=== PATIENT | male | born 1945 | race Caucasian/White ===

== ENCOUNTER 2018-08-04 18:58 | Inpatient (IN) ==
--- NOTE | 2018-08-04 19:08 | ED ---
HPI General Chief Complaint: Arrhythmia / Palpitations Stated Complaint: Cardiac complaint Time Seen by Provider: 08/04/18 19:05 Source: patient Mode of arrival: EMS Limitations: no limitations History of Present Illness HPI narrative: Patient originally complained of chest pain lightheaded EMS arrived found the patient to be an wide-complex tachycardia and hypotensive patient was defibrillated and patient change to a sinus tachycardia with frequent PVCs, patient was provided lidocaine IV MD complaint: Reports chest pain STEMI Alert: No Onset (ago): hour(s) (1) Onset: during rest Pain location: Reports substernal Severity: severe Quality: Reports tightness Pain radiation: Reports none Relieving factors: nothing Exacerbating factors: nothing Treatments prior to arrival chest pain: Reports defibrillation and other Related Data Home Medications Medication Instructions Recorded Confirmed allopurinol 100 mg PO BID 08/04/18 08/04/18 aspirin [Aspir-81] 81 mg PO DAILY 08/04/18 08/04/18 cholecalciferol (vitamin D3) 1,000 unit PO DAILY 08/04/18 08/04/18 [Vitamin D3] clopidogrel [Plavix] 75 mg PO DAILY 08/04/18 08/04/18 insulin lispro [Humalog U-100 15 unit SUBCUT BID 08/04/18 08/04/18 Insulin] losartan 25 mg PO DAILY 08/04/18 08/04/18 metformin 1,000 mg PO BID 08/04/18 08/04/18 omeprazole 20 mg PO DAILY 08/04/18 08/04/18 sitagliptin [Januvia] 100 mg PO DAILY 08/04/18 08/04/18 Previous Rx's Medication Instructions Recorded atorvastatin 40 mg PO HS tab 08/07/18 carvedilol 6.25 mg PO BID 90 Days #180 tab 08/07/18 Allergies Allergy/AdvReac Type Severity Reaction Status Date / Time No Known Allergies Allergy Uncoded 10/03/13 18:50 Review of Systems ROS: all other systems reviewed are negative PMFSH History History Provided By: Project Controller / EMT Medical History Medical History Diabetes (Acute) GERD (gastroesophageal reflux disease) (Acute) Gout (Acute) Hyperlipidemia (Acute) Hypertension (Acute) Myocardial infarction (Acute) Surgical History Surgical History H/O rotator cuff surgery (Acute) Hx of tonsillectomy (Acute) Stented coronary artery (Acute) Family History Family History Other Coronary artery disease Social History Social History Substance History: No History of Abuse Second Hand Smoke Exposure: No Smoking Status: Former smoker How Often Do You Have a Drink Containing Alcohol: Never Exam Narrative Exam Narrative: GENERAL: Well-nourished, well-developed patient in no apparent distress. SKIN: Warm and dry. HEAD: Atraumatic. Normocephalic. EYES: Pupils equal and round. No scleral icterus. No injection or drainage. ENT: No nasal bleeding or discharge. Mucous membranes pink and moist. NECK: Trachea midline. No JVD. CARDIOVASCULAR: Regular rate and rhythm. no rubs or gallops RESPIRATORY: No accessory muscle use. Clear to auscultation. Breath sounds equal bilaterally. GASTROINTESTINAL: Abdomen soft, non-tender, nondistended. No rebound or guarding MUSCULOSKELETAL: Extremities without clubbing, cyanosis, or edema. No obvious deformities. NEUROLOGICAL: Awake and alert. No obvious cranial nerve deficits. Motor grossly within normal limits. Five out of 5 muscle strength in the arms and legs. Normal speech. PSYCHIATRIC: Appropriate mood and affect; insight and judgment normal. Course Initial Documented Vital Signs Temperature 98.9 F 08/04/18 19:00 Pulse Rate 113 H 08/04/18 19:00 Respiratory Rate 18 08/04/18 19:00 Blood Pressure 145/101 H 08/04/18 19:00 Pulse Oximetry 96 08/04/18 19:00 Last Documented Vital Signs Temperature 98.5 F 08/07/18 08:13 Pulse Rate 110 H 08/07/18 09:00 Respiratory Rate 17 08/07/18 08:13 Blood Pressure 160/86 H 08/07/18 08:13 Pulse Oximetry 96 08/07/18 08:41 Medical Decision Making MDM Narrative Medical Screen Exam Complete: Yes Emergency Medical Condition: Yes Differential Diagnosis Differential Diagnosis: Non-STEMI versus STEMI versus tachyarrhythmia versus prolonged QT versus electrolyte abnormalities Lab Data Result diagrams: 08/07/18 05:44 08/05/18 05:07 Lab Results 08/04/18 08/04/1818 Range/Units 19:15 19:15 19:15 WBC 9.8 (4.0-11.0) th/mm3 RBC 4.88 (4.50-5.90) mil/mm3 Hgb 14.2 (13.0-17.0) gm/dL Hct 43.4 (39.0-51.0) % MCV 89.0 (80.0-100.0) fL MCH 29.2 (27.0-34.0) pg MCHC 32.8 (32.0-36.0) % RDW 14.2 (11.6-17.2) % Plt Count 233 (150-450) th/mm3 MPV 8.4 (7.0-11.0) fL Neut % (Auto) 48.8 (16.0-70.0) % Lymph % (Auto) 40.3 (9.0-44.0) % Coleman % (Auto) 7.1 (0.0-8.0) % Eos % (Auto) 3.2 (0.0-4.0) % Baso % (Auto) 0.6 (0.0-2.0) % Neut # (Auto) 4.8 (1.8-7.7) th/mm3 Lymph # (Auto) 4.0 (1.0-4.8) th/mm3 Coleman # (Auto) 0.7 (0.0-0.9) th/mm3 Eos # (Auto) 0.3 (0.0-0.4) th/mm3 Baso # (Auto) 0.1 (0.0-0.2) th/mm3 WBC Differential . Differential Comment Auto diff final PT 10.1 (9.8-11.6) sec INR 1.0 Ratio APTT 22.6 L (24.3-30.1) sec Sodium 138 (136-145) meq/L Potassium 3.9 (3.5-5.1) meq/L Chloride 105 (98-107) meq/L Carbon Dioxide 20.3 L (21.0-32.0) meq/L Anion Gap 13 (5-15) meq/L BUN 14 (7-18) mg/dL Creatinine 1.19 (0.60-1.30) mg/dL Estimated GFR 60 L (>89) mL/min POC Glucose (68-110) mg/dl Random Glucose 291 H (74-106) mg/dL Calcium 8.4 L (8.5-10.1) mg/dL Total Bilirubin 0.3 (0.2-1.0) mg/dL AST 53 H (15-37) U/L ALT 59 (12-78) U/L Alkaline Phosphatase 73 (45-117) U/L Total Creatine Kinase 88 (39-308) U/L Troponin I 0.02 (0.02-0.05) ng/mL B-Natriuretic Peptide (0-100) pg/mL Total Protein 7.1 (6.4-8.2) g/dL Albumin 3.2 L (3.4-5.0) g/dL Triglycerides (42-150) mg/dL Cholesterol (120-200) mg/dL LDL Cholesterol, Calc (0-99) mg/dL HDL Cholesterol (40.0-60.0) mg/dL Cholesterol/HDL Ratio Ratio Lipase 87 (73-393) U/L Nasal Screen MRSA (PCR) (Negative) 08/04/18 08/04/18 08/04/18 Range/Units 19:15 21:30 22:01 WBC (4.0-11.0) th/mm3 RBC (4.50-5.90) mil/mm3 Hgb (13.0-17.0) gm/dL Hct (39.0-51.0) % MCV (80.0-100.0) fL MCH (27.0-34.0) pg MCHC (32.0-36.0) % RDW (11.6-17.2) % Plt Count (150-450) th/mm3 MPV (7.0-11.0) fL Neut % (Auto) (16.0-70.0) % Lymph % (Auto) (9.0-44.0) % Coleman % (Auto) (0.0-8.0) % Eos % (Auto) (0.0-4.0) % Baso % (Auto) (0.0-2.0) % Neut # (Auto) (1.8-7.7) th/mm3 Lymph # (Auto) (1.0-4.8) th/mm3 Coleman # (Auto) (0.0-0.9) th/mm3 Eos # (Auto) (0.0-0.4) th/mm3 Baso # (Auto) (0.0-0.2) th/mm3 WBC Differential Differential Comment PT (9.8-11.6) sec INR Ratio APTT (24.3-30.1) sec Sodium (136-145) meq/L Potassium (3.5-5.1) meq/L Chloride (98-107) meq/L Carbon Dioxide (21.0-32.0) meq/L Anion Gap (5-15) meq/L BUN (7-18) mg/dL Creatinine (0.60-1.30) mg/dL Estimated GFR (>89) mL/min POC Glucose 317 H (68-110) mg/dl Random Glucose (74-106) mg/dL Calcium (8.5-10.1) mg/dL Total Bilirubin (0.2-1.0) mg/dL AST (15-37) U/L ALT (12-78) U/L Alkaline Phosphatase (45-117) U/L Total Creatine Kinase (39-308) U/L Troponin I (0.02-0.05) ng/mL B-Natriuretic Peptide 130 H (0-100) pg/mL Total Protein (6.4-8.2) g/dL Albumin (3.4-5.0) g/dL Triglycerides (42-150) mg/dL Cholesterol (120-200) mg/dL LDL Cholesterol, Calc (0-99) mg/dL HDL Cholesterol (40.0-60.0) mg/dL Cholesterol/HDL Ratio Ratio Lipase (73-393) U/L Nasal Screen MRSA (PCR) Not detected (Negative) 08/05/18 08/05/18 08/05/18 Range/Units 00:02 02:16 03:24 WBC (4.0-11.0) th/mm3 RBC (4.50-5.90) mil/mm3 Hgb (13.0-17.0) gm/dL Hct (39.0-51.0) % MCV (80.0-100.0) fL MCH (27.0-34.0) pg MCHC (32.0-36.0) % RDW (11.6-17.2) % Plt Count (150-450) th/mm3 MPV (7.0-11.0) fL Neut % (Auto) (16.0-70.0) % Lymph % (Auto) (9.0-44.0) % Coleman % (Auto) (0.0-8.0) % Eos % (Auto) (0.0-4.0) % Baso % (Auto) (0.0-2.0) % Neut # (Auto) (1.8-7.7) th/mm3 Lymph # (Auto) (1.0-4.8) th/mm3 Coleman # (Auto) (0.0-0.9) th/mm3 Eos # (Auto) (0.0-0.4) th/mm3 Baso # (Auto) (0.0-0.2) th/mm3 WBC Differential Differential Comment PT 10.6 (9.8-11.6) sec INR 1.0 Ratio APTT 24.0 L (24.3-30.1) sec Sodium (136-145) meq/L Potassium (3.5-5.1) meq/L Chloride (98-107) meq/L Carbon Dioxide (21.0-32.0) meq/L Anion Gap (5-15) meq/L BUN (7-18) mg/dL Creatinine (0.60-1.30) mg/dL Estimated GFR (>89) mL/min POC Glucose 192 H (68-110) mg/dl Random Glucose (74-106) mg/dL Calcium (8.5-10.1) mg/dL Total Bilirubin (0.2-1.0) mg/dL AST (15-37) U/L ALT (12-78) U/L Alkaline Phosphatase (45-117) U/L Total Creatine Kinase 117 (39-308) U/L Troponin I 0.67 H* (0.02-0.05) ng/mL B-Natriuretic Peptide (0-100) pg/mL Total Protein (6.4-8.2) g/dL Albumin (3.4-5.0) g/dL Triglycerides (42-150) mg/dL Cholesterol (120-200) mg/dL LDL Cholesterol, Calc (0-99) mg/dL HDL Cholesterol (40.0-60.0) mg/dL Cholesterol/HDL Ratio Ratio Lipase (73-393) U/L Nasal Screen MRSA (PCR) (Negative) 08/05/18 08/05/18 08/05/18 Range/Units 05:07 05:07 07:54 WBC 8.7 (4.0-11.0) th/mm3 RBC 4.70 (4.50-5.90) mil/mm3 Hgb 13.7 (13.0-17.0) gm/dL Hct 41.6 (39.0-51.0) % MCV 88.5 (80.0-100.0) fL MCH 29.2 (27.0-34.0) pg MCHC 33.0 (32.0-36.0) % RDW 14.0 (11.6-17.2) % Plt Count 221 (150-450) th/mm3 MPV 8.7 (7.0-11.0) fL Neut % (Auto) 62.9 (16.0-70.0) % Lymph % (Auto) 28.0 (9.0-44.0) % Coleman % (Auto) 7.1 (0.0-8.0) % Eos % (Auto) 1.5 (0.0-4.0) % Baso % (Auto) 0.5 (0.0-2.0) % Neut # (Auto) 5.5 (1.8-7.7) th/mm3 Lymph # (Auto) 2.4 (1.0-4.8) th/mm3 Coleman # (Auto) 0.6 (0.0-0.9) th/mm3 Eos # (Auto) 0.1 (0.0-0.4) th/mm3 Baso # (Auto) 0.0 (0.0-0.2) th/mm3 WBC Differential . Differential Comment Auto diff final PT (9.8-11.6) sec INR Ratio APTT 31.5 H D (24.3-30.1) sec Sodium 140 (136-145) meq/L Potassium 4.0 (3.5-5.1) meq/L Chloride 105 (98-107) meq/L Carbon Dioxide 24.4 (21.0-32.0) meq/L Anion Gap 11 (5-15) meq/L BUN 15 (7-18) mg/dL Creatinine 0.95 (0.60-1.30) mg/dL Estimated GFR 78 L (>89) mL/min POC Glucose (68-110) mg/dl Random Glucose 191 H D (74-106) mg/dL Calcium 8.8 (8.5-10.1) mg/dL Total Bilirubin (0.2-1.0) mg/dL AST (15-37) U/L ALT (12-78) U/L Alkaline Phosphatase (45-117) U/L Total Creatine Kinase 130 (39-308) U/L Troponin I 0.80 H* (0.02-0.05) ng/mL B-Natriuretic Peptide (0-100) pg/mL Total Protein (6.4-8.2) g/dL Albumin (3.4-5.0) g/dL Triglycerides (42-150) mg/dL Cholesterol (120-200) mg/dL LDL Cholesterol, Calc (0-99) mg/dL HDL Cholesterol (40.0-60.0) mg/dL Cholesterol/HDL Ratio Ratio Lipase (73-393) U/L Nasal Screen MRSA (PCR) (Negative) 08/05/18 08/05/18 08/05/18 Range/Units 09:07 12:11 16:10 WBC (4.0-11.0) th/mm3 RBC (4.50-5.90) mil/mm3 Hgb (13.0-17.0) gm/dL Hct (39.0-51.0) % MCV (80.0-100.0) fL MCH (27.0-34.0) pg MCHC (32.0-36.0) % RDW (11.6-17.2) % Plt Count (150-450) th/mm3 MPV (7.0-11.0) fL Neut % (Auto) (16.0-70.0) % Lymph % (Auto) (9.0-44.0) % Coleman % (Auto) (0.0-8.0) % Eos % (Auto) (0.0-4.0) % Baso % (Auto) (0.0-2.0) % Neut # (Auto) (1.8-7.7) th/mm3 Lymph # (Auto) (1.0-4.8) th/mm3 Coleman # (Auto) (0.0-0.9) th/mm3 Eos # (Auto) (0.0-0.4) th/mm3 Baso # (Auto) (0.0-0.2) th/mm3 WBC Differential Differential Comment PT (9.8-11.6) sec INR Ratio APTT 25.4 (24.3-30.1) sec Sodium (136-145) meq/L Potassium (3.5-5.1) meq/L Chloride (98-107) meq/L Carbon Dioxide (21.0-32.0) meq/L Anion Gap (5-15) meq/L BUN (7-18) mg/dL Creatinine (0.60-1.30) mg/dL Estimated GFR (>89) mL/min POC Glucose 225 H 243 H (68-110) mg/dl Random Glucose (74-106) mg/dL Calcium (8.5-10.1) mg/dL Total Bilirubin (0.2-1.0) mg/dL AST (15-37) U/L ALT (12-78) U/L Alkaline Phosphatase (45-117) U/L Total Creatine Kinase (39-308) U/L Troponin I (0.02-0.05) ng/mL B-Natriuretic Peptide (0-100) pg/mL Total Protein (6.4-8.2) g/dL Albumin (3.4-5.0) g/dL Triglycerides (42-150) mg/dL Cholesterol (120-200) mg/dL LDL Cholesterol, Calc (0-99) mg/dL HDL Cholesterol (40.0-60.0) mg/dL Cholesterol/HDL Ratio Ratio Lipase (73-393) U/L Nasal Screen MRSA (PCR) (Negative) 08/05/18 08/05/18 08/06/18 Range/Units 16:44 21:42 05:16 WBC (4.0-11.0) th/mm3 RBC (4.50-5.90) mil/mm3 Hgb (13.0-17.0) gm/dL Hct (39.0-51.0) % MCV (80.0-100.0) fL MCH (27.0-34.0) pg MCHC (32.0-36.0) % RDW (11.6-17.2) % Plt Count (150-450) th/mm3 MPV (7.0-11.0) fL Neut % (Auto) (16.0-70.0) % Lymph % (Auto) (9.0-44.0) % Coleman % (Auto) (0.0-8.0) % Eos % (Auto) (0.0-4.0) % Baso % (Auto) (0.0-2.0) % Neut # (Auto) (1.8-7.7) th/mm3 Lymph # (Auto) (1.0-4.8) th/mm3 Coleman # (Auto) (0.0-0.9) th/mm3 Eos # (Auto) (0.0-0.4) th/mm3 Baso # (Auto) (0.0-0.2) th/mm3 WBC Differential Differential Comment PT (9.8-11.6) sec INR Ratio APTT (24.3-30.1) sec Sodium (136-145) meq/L Potassium (3.5-5.1) meq/L Chloride (98-107) meq/L Carbon Dioxide (21.0-32.0) meq/L Anion Gap (5-15) meq/L BUN (7-18) mg/dL Creatinine (0.60-1.30) mg/dL Estimated GFR (>89) mL/min POC Glucose 209 H 255 H (68-110) mg/dl Random Glucose (74-106) mg/dL Calcium (8.5-10.1) mg/dL Total Bilirubin (0.2-1.0) mg/dL AST (15-37) U/L ALT (12-78) U/L Alkaline Phosphatase (45-117) U/L Total Creatine Kinase (39-308) U/L Troponin I (0.02-0.05) ng/mL B-Natriuretic Peptide (0-100) pg/mL Total Protein (6.4-8.2) g/dL Albumin (3.4-5.0) g/dL Triglycerides 141 (42-150) mg/dL Cholesterol 88 L (120-200) mg/dL LDL Cholesterol, Calc 31 (0-99) mg/dL HDL Cholesterol 28.7 L (40.0-60.0) mg/dL Cholesterol/HDL Ratio 3.06 Ratio Lipase (73-393) U/L Nasal Screen MRSA (PCR) (Negative) 08/06/18 08/06/18 08/06/18 Range/Units 05:16 06:03 07:46 WBC 8.7 (4.0-11.0) th/mm3 RBC 4.48 L (4.50-5.90) mil/mm3 Hgb 13.3 (13.0-17.0) gm/dL Hct 39.7 (39.0-51.0) % MCV 88.5 (80.0-100.0) fL MCH 29.7 (27.0-34.0) pg MCHC 33.5 (32.0-36.0) % RDW 14.5 (11.6-17.2) % Plt Count 193 (150-450) th/mm3 MPV 8.4 (7.0-11.0) fL Neut % (Auto) (16.0-70.0) % Lymph % (Auto) (9.0-44.0) % Coleman % (Auto) (0.0-8.0) % Eos % (Auto) (0.0-4.0) % Baso % (Auto) (0.0-2.0) % Neut # (Auto) (1.8-7.7) th/mm3 Lymph # (Auto) (1.0-4.8) th/mm3 Coleman # (Auto) (0.0-0.9) th/mm3 Eos # (Auto) (0.0-0.4) th/mm3 Baso # (Auto) (0.0-0.2) th/mm3 WBC Differential Differential Comment PT (9.8-11.6) sec INR Ratio APTT (24.3-30.1) sec Sodium (136-145) meq/L Potassium (3.5-5.1) meq/L Chloride (98-107) meq/L Carbon Dioxide (21.0-32.0) meq/L Anion Gap (5-15) meq/L BUN (7-18) mg/dL Creatinine (0.60-1.30) mg/dL Estimated GFR (>89) mL/min POC Glucose 203 H 204 H (68-110) mg/dl Random Glucose (74-106) mg/dL Calcium (8.5-10.1) mg/dL Total Bilirubin (0.2-1.0) mg/dL AST (15-37) U/L ALT (12-78) U/L Alkaline Phosphatase (45-117) U/L Total Creatine Kinase (39-308) U/L Troponin I (0.02-0.05) ng/mL B-Natriuretic Peptide (0-100) pg/mL Total Protein (6.4-8.2) g/dL Albumin (3.4-5.0) g/dL Triglycerides (42-150) mg/dL Cholesterol (120-200) mg/dL LDL Cholesterol, Calc (0-99) mg/dL HDL Cholesterol (40.0-60.0) mg/dL Cholesterol/HDL Ratio Ratio Lipase (73-393) U/L Nasal Screen MRSA (PCR) (Negative) 08/06/18 08/06/18 08/06/18 Range/Units 11:20 16:42 20:29 WBC (4.0-11.0) th/mm3 RBC (4.50-5.90) mil/mm3 Hgb (13.0-17.0) gm/dL Hct (39.0-51.0) % MCV (80.0-100.0) fL MCH (27.0-34.0) pg MCHC (32.0-36.0) % RDW (11.6-17.2) % Plt Count (150-450) th/mm3 MPV (7.0-11.0) fL Neut % (Auto) (16.0-70.0) % Lymph % (Auto) (9.0-44.0) % Coleman % (Auto) (0.0-8.0) % Eos % (Auto) (0.0-4.0) % Baso % (Auto) (0.0-2.0) % Neut # (Auto) (1.8-7.7) th/mm3 Lymph # (Auto) (1.0-4.8) th/mm3 Coleman # (Auto) (0.0-0.9) th/mm3 Eos # (Auto) (0.0-0.4) th/mm3 Baso # (Auto) (0.0-0.2) th/mm3 WBC Differential Differential Comment PT (9.8-11.6) sec INR Ratio APTT (24.3-30.1) sec Sodium (136-145) meq/L Potassium (3.5-5.1) meq/L Chloride (98-107) meq/L Carbon Dioxide (21.0-32.0) meq/L Anion Gap (5-15) meq/L BUN (7-18) mg/dL Creatinine (0.60-1.30) mg/dL Estimated GFR (>89) mL/min POC Glucose 209 H 142 H 245 H (68-110) mg/dl Random Glucose (74-106) mg/dL Calcium (8.5-10.1) mg/dL Total Bilirubin (0.2-1.0) mg/dL AST (15-37) U/L ALT (12-78) U/L Alkaline Phosphatase (45-117) U/L Total Creatine Kinase (39-308) U/L Troponin I (0.02-0.05) ng/mL B-Natriuretic Peptide (0-100) pg/mL Total Protein (6.4-8.2) g/dL Albumin (3.4-5.0) g/dL Triglycerides (42-150) mg/dL Cholesterol (120-200) mg/dL LDL Cholesterol, Calc (0-99) mg/dL HDL Cholesterol (40.0-60.0) mg/dL Cholesterol/HDL Ratio Ratio Lipase (73-393) U/L Nasal Screen MRSA (PCR) (Negative) 08/07/18 08/07/18 08/07/18 Range/Units 01:27 05:44 07:03 WBC 9.5 (4.0-11.0) th/mm3 RBC 4.39 L (4.50-5.90) mil/mm3 Hgb 13.0 (13.0-17.0) gm/dL Hct 39.0 (39.0-51.0) % MCV 88.8 (80.0-100.0) fL MCH 29.6 (27.0-34.0) pg MCHC 33.3 (32.0-36.0) % RDW 14.6 (11.6-17.2) % Plt Count 193 (150-450) th/mm3 MPV 8.0 (7.0-11.0) fL Neut % (Auto) (16.0-70.0) % Lymph % (Auto) (9.0-44.0) % Coleman % (Auto) (0.0-8.0) % Eos % (Auto) (0.0-4.0) % Baso % (Auto) (0.0-2.0) % Neut # (Auto) (1.8-7.7) th/mm3 Lymph # (Auto) (1.0-4.8) th/mm3 Coleman # (Auto) (0.0-0.9) th/mm3 Eos # (Auto) (0.0-0.4) th/mm3 Baso # (Auto) (0.0-0.2) th/mm3 WBC Differential Differential Comment PT (9.8-11.6) sec INR Ratio APTT (24.3-30.1) sec Sodium (136-145) meq/L Potassium (3.5-5.1) meq/L Chloride (98-107) meq/L Carbon Dioxide (21.0-32.0) meq/L Anion Gap (5-15) meq/L BUN (7-18) mg/dL Creatinine (0.60-1.30) mg/dL Estimated GFR (>89) mL/min POC Glucose 211 H 188 H (68-110) mg/dl Random Glucose (74-106) mg/dL Calcium (8.5-10.1) mg/dL Total Bilirubin (0.2-1.0) mg/dL AST (15-37) U/L ALT (12-78) U/L Alkaline Phosphatase (45-117) U/L Total Creatine Kinase (39-308) U/L Troponin I (0.02-0.05) ng/mL B-Natriuretic Peptide (0-100) pg/mL Total Protein (6.4-8.2) g/dL Albumin (3.4-5.0) g/dL Triglycerides (42-150) mg/dL Cholesterol (120-200) mg/dL LDL Cholesterol, Calc (0-99) mg/dL HDL Cholesterol (40.0-60.0) mg/dL Cholesterol/HDL Ratio Ratio Lipase (73-393) U/L Nasal Screen MRSA (PCR) (Negative) Imaging Data Radiologist's impression: Chest X-Ray 08/04/18 19:05 CONCLUSION: Basilar density, probably atelectasis. Cardiomegaly. No pneumothorax or significant effusion. Chest X-Ray 08/06/18 00:00 CONCLUSION: Left-sided pacer in good position without pneumothorax. Cardiomegaly with pulmonary vascular engorgement. ECG Data EKG Prior to Arrival: No Attestation: I personally reviewed and interpreted this ECG as follows: Prior ECG tracings: not available for review Interpretation: nsr with frequent pvc's Discharge Plan Discharge Disposition Patient Disposition: 01 Discharge Home Discharge Condition Condition: Good Discharge Order Discharge Orders: Discharge Order (Routine); Ordered 08/07/18 Ordered By: Rodney Otero Cardiology Clear for Discharge (Routine); Ordered 08/07/18 Ordered By: January Shadeed Discharge Details Diagnosis: Wide-complex tachycardia, Chest pain Physicians Team ED Provider: Reece Baires Primary Care Provider: Guru Sumner Attending Provider: Rodney Otero Other Providers: Mario Millan Discharge Interventions Interventions: ED Discharge Assessment Last Done: 08/04/18 21:40 Status ED Status: Left Department Discharge Information Discharge Date/Time: 08/04/18 21:45
--- NOTE | 2018-08-04 19:31 | XR ---
EXAM DATE: 08/04/2018 7:05 PM EDT AGE/SEX: 72 years / Male INDICATIONS: Chest pain. CLINICAL DATA: This is the patient's initial encounter. Patient reports that signs and symptoms have been present for 1 day and indicates a pain score of 4/10. MEDICAL/SURGICAL HISTORY: Diabetes mellitus type II. None. COMPARISON: . FINDINGS: Heart size enlarged. Basilar density, probably atelectasis. No significant effusion. No pneumothorax. CONCLUSION: Basilar density, probably atelectasis. Cardiomegaly. No pneumothorax or significant effusion. Electronically signed by: Joe Rudd MD 08/04/2018 7:30 PM EDT
[2018-08-04 19:46] LABS: Baso # (Auto) 0.1 th/mm3 (0.0-0.2); Baso % (Auto) 0.6 % (0.0-2.0); Eos # (Auto) 0.3 th/mm3 (0.0-0.4); Eos % (Auto) 3.2 % (0.0-4.0); Hematocrit 43.4 % (39.0-51.0); Hemoglobin 14.2 gm/dL (13.0-17.0); Lymph % (Auto) 40.3 % (9.0-44.0); Mean Corpuscular HGB Conc 32.8 % (32.0-36.0); Mean Corpuscular Hemoglobin 29.2 pg (27.0-34.0); Mean Platelet Volume 8.4 fL (7.0-11.0); Mono # (Auto) 0.7 th/mm3 (0.0-0.9); Mono % (Auto) 7.1 % (0.0-8.0); Neut # (Auto) 4.8 th/mm3 (1.8-7.7); Neut % (Auto) 48.8 % (16.0-70.0); Platelet Count 233 th/mm3 (150-450); Red Blood Count 4.88 mil/mm3 (4.50-5.90); Red Cell Distribution Width 14.2 % (11.6-17.2); White Blood Count 9.8 th/mm3 (4.0-11.0)
[2018-08-04 19:59] LABS: Activated Partial Thrombo Time 22.6 sec (24.3-30.1); Prothrombin Time 10.1 sec (9.8-11.6)
[2018-08-04 20:17] LABS: Alanine Aminotransferase 59 U/L (12-78); Albumin 3.2 g/dL (3.4-5.0); Anion Gap 13 meq/L (5-15); Aspartate Aminotransferase 53 U/L (15-37); Blood Urea Nitrogen 14 mg/dL (7-18); Calcium 8.4 mg/dL (8.5-10.1); Carbon Dioxide 20.3 meq/L (21.0-32.0); Chloride 105 meq/L (98-107); Glomerular Filtration Rate 60 mL/min (>89); Glucose,Random 291 mg/dL (74-106); Lipase 87 U/L (73-393); Potassium 3.9 meq/L (3.5-5.1); Sodium 138 meq/L (136-145)
[2018-08-04 20:22] LABS: Alkaline Phosphatase 73 U/L (45-117); Total Protein 7.1 g/dL (6.4-8.2); Troponin I 0.02 ng/mL (0.02-0.05)
[2018-08-04 20:25] LABS: Creatine Kinase 88 U/L (39-308)
[2018-08-04] MEDS ORDERED: Dextrose 50% in Water 50 ML Vial IV.PUSH PRN (22:27)
--- NOTE | 2018-08-04 22:38 | P.HP ---
History of Present Illness Service: [facility] Primary Care Physician: Guru Sumner MD History of Present Illness: 72-year-old male with a past medical history significant for CAD status post NV in 2006, hypertension, hyperlipidemia and diabetes mellitus presents to the emergency department for the evaluation of chest pain. The patient reports he was watching TV when he had sudden onset chest pain. He reports he felt hot, dizzy and became diaphoretic. He denies any shortness of breath or loss of consciousness. He states his chest pain is now resolved. On arrival to the scene, EMS the patient to have a wide-complex tachycardia and be hypotensive. The patient was defibrillated to and converted to sinus tachycardia with frequent PVCs. He denies any associated shortness of breath. No fevers/ chills. No abdominal pain. No nausea/vomiting/diarrhea. No lateralizing signs /symptoms. Inpatient Certification: I certify that the inpatient services were ordered in accordance with Medicare regulations governing the order. This includes certification that hospital inpatient services are reasonable and necessary and in the case of services not specified as inpatient-only under 42 CFR 419.22(n), that they are appropriately provided as inpatient services in accordance to with the 2-midnight benchmark under 43 CFR 412.3(e) Review of Systems All other systems reviewed negative except as stated in HPI [facility] - History History Provided By: Patient - Medical History Medical History: Medical History (Last Updated 08/04/18 @ 22:31 by Beverly Camarillo MD) Diabetes GERD (gastroesophageal reflux disease) Gout Hyperlipidemia Hypertension Myocardial infarction - Surgical History Surgical History: Surgical History (Last Reviewed 08/04/18 @ 22:31 by Beverly Camarillo MD) H/O rotator cuff surgery Hx of tonsillectomy Stented coronary artery - Family History Family History: Family History (Last Updated 08/04/18 @ 22:31 by Beverly Camarillo MD) Other Coronary artery disease - Tobacco History Second Hand Smoke Exposure: No Tobacco Use In Past 30 Days: No Smoking Status: Former smoker - Alcohol History How Often Do You Have a Drink Containing Alcohol: Never - Substance Use History Substance History: No History of Abuse - Immunization History Tetanus Immunization: Unsure Medications and Allergies Active Medications: Active Medications Chlorhexidine Gluconate (Chlorhexidine 2% Cloth) 3 pack TOPICAL DAILY@0400 [facility] Stop: 08/10/18 03:59 Chlorhexidine Gluconate (Chlorhexidine 2% Cloth) 3 pack TOPICAL DAILY@0400 PRN PRN Reason: Extra cloth needed Stop: 08/10/18 03:59 Sodium Chloride (Ns Flush) 2 ml IV.FLUSH UNSCH PRN PRN Reason: FLUSH AFTER USING IV ACCESS Allergies Allergy/AdvReac Type Severity Reaction Status Date / Time No Known Allergies Allergy Uncoded 10/03/13 18:50 Home Medications Medication Instructions Recorded Confirmed Type allopurinol 100 mg PO BID 08/04/18 08/04/18 History aspirin [Aspir-81] 81 mg PO DAILY 08/04/18 08/04/18 History carvedilol 6.25 mg PO BID 08/04/18 08/04/18 History cholecalciferol (vitamin D3) 1,000 unit PO DAILY 08/04/18 08/04/18 History [Vitamin D3] clopidogrel [Plavix] 75 mg PO DAILY 08/04/18 08/04/18 History insulin lispro [Humalog U-100 15 unit SUBCUT BID 08/04/18 08/04/18 History Insulin] losartan 25 mg PO DAILY 08/04/18 08/04/18 History metformin 1,000 mg PO BID 08/04/18 08/04/18 History omeprazole 20 mg PO DAILY 08/04/18 08/04/18 History sitagliptin [Januvia] 100 mg PO DAILY 08/04/18 08/04/18 History Exam Vital signs: Vital Signs 08/04/18 19:00 08/04/18 19:32 08/04/18 20:00 Temperature 98.9 F Pulse Rate 113 H Respiratory Rate 18 Blood Pressure 145/101 H Pulse Oximetry 96 96 95 Intake & Output 08/04/18 08/04/18 08/05/18 06:59 18:59 06:59 Weight 128 kg Other: Weight On Admission 128 kg Narrative: Gen.: No acute distress Head: Normocephalic. Atraumatic. EENT: Pupils equal round and reactive to light. Nose without drainage. Airway intact. Throat without injection. Cardiovascular: Regular rate and rhythm. No murmurs, rubs or gallops. Respiratory: Lungs clear to auscultation bilaterally. No wheezes or rhonchi. Abdomen: Soft, nontender, nondistended. No peritoneal signs. Musculoskeletal: No gross deformities. No edema. Skin: No obvious rashes or erythema. Neuro: Sensory and motor grossly intact. Cranial nerves II through XII grossly intact. Results - Labs CBC & Chem 7: 08/04/18 19:15 08/04/18 19:15 Labs: Laboratory Results - last 24 hr 08/04/18 08/04/18 08/04/18 19:15 19:15 19:15 WBC 9.8 RBC 4.88 Hgb 14.2 Hct 43.4 MCV 89.0 MCH 29.2 MCHC 32.8 RDW 14.2 Plt Count 233 MPV 8.4 Neut % (Auto) 48.8 Lymph % (Auto) 40.3 Morris % (Auto) 7.1 Eos % (Auto) 3.2 Baso % (Auto) 0.6 Neut # (Auto) 4.8 Lymph # (Auto) 4.0 Morris # (Auto) 0.7 Eos # (Auto) 0.3 Baso # (Auto) 0.1 WBC Differential . Differential Comment Auto diff final PT 10.1 INR 1.0 APTT 22.6 L Sodium 138 Potassium 3.9 Chloride 105 Carbon Dioxide 20.3 L Anion Gap 13 BUN 14 Creatinine 1.19 Estimated GFR 60 L POC Glucose Random Glucose 291 H Calcium 8.4 L Total Bilirubin 0.3 AST 53 H ALT 59 Alkaline Phosphatase 73 Total Creatine Kinase 88 Troponin I 0.02 B-Natriuretic Peptide Total Protein 7.1 Albumin 3.2 L Lipase 87 08/04/18 08/04/18 19:15 22:01 WBC RBC Hgb Hct MCV MCH MCHC RDW Plt Count MPV Neut % (Auto) Lymph % (Auto) Morris % (Auto) Eos % (Auto) Baso % (Auto) Neut # (Auto) Lymph # (Auto) Morris # (Auto) Eos # (Auto) Baso # (Auto) WBC Differential Differential Comment PT INR APTT Sodium Potassium Chloride Carbon Dioxide Anion Gap BUN Creatinine Estimated GFR POC Glucose 317 H Random Glucose Calcium Total Bilirubin AST ALT Alkaline Phosphatase Total Creatine Kinase Troponin I B-Natriuretic Peptide 130 H Total Protein Albumin Lipase - Imaging Impressions Chest X-Ray 08/04/18 19:05 CONCLUSION: Basilar density, probably atelectasis. Cardiomegaly. No pneumothorax or significant effusion. Caprini VTE Risk Assessment Caprini VTE Risk Assessment: Moderate/High Risk (score >= 2) Caprini Risk Assessment Model: Point Value = 1 Point Value = 2 Point Value = 3 Point Value = 5 Age 41-60 Minor surgery BMI > 25 kg/m2 Swollen legs Varicose veins or History of unexplained or recurrent spontaneous Oral contraceptives or hormone replacement Sepsis (< 1 month) Serious lung disease, including pneumonia (< 1 month) Abnormal pulmonary function Acute myocardial infarction Congestive heart failure (< 1 month) History of inflammatory bowel disease Medical patient at bed rest Age 61-74 Arthroscopic surgery Major open surgery (> 45 min) Laparoscopic surgery (> 45 min) Malignancy Confined to bed (> 72 hours) Immobilizing plaster cast Central venous access Age >= 75 History of VTE Family history of VTE Factor V Leiden Prothrombin [id number] Lupus anticoagulant Anticardiolipin antibodies Elevated serum homocysteine Heparin-induced thrombocytopenia Other congenital or acquired thrombophilia Stroke (< 1 month) Elective arthroplasty Hip, pelvis, or leg fracture Acute spinal cord injury (< 1 month) Prophylaxis Regimen: Total Risk Factor Score Risk Level Prophylaxis Regimen 0-1 Low Early ambulation 2 Moderate Order ONE of the following: *Sequential Compression Device (SCD) *Heparin 5000 units SQ BID 3-4 Higher Order ONE of the following medications: *Heparin 5000 units SQ TID *Enoxaparin/Lovenox 40 mg SQ daily (WT < 150 kg, CrCl > 30 mL/min) *Enoxaparin/Lovenox 30 mg SQ daily (WT < 150 kg, CrCl > 10-29 mL/min) *Enoxaparin/Lovenox 30 mg SQ BID (WT < 150 kg, CrCl > 30 mL/min) AND/OR *Sequential Compression Device (SCD) 5 or more Highest Order ONE of the following medications: *Heparin 5000 units SQ TID (Preferred with Epidurals) *Enoxaparin/Lovenox 40 mg SQ daily (WT < 150 kg, CrCl > 30 mL/min) *Enoxaparin/Lovenox 30 mg SQ daily (WT < 150 kg, CrCl > 10-29 mL/min) *Enoxaparin/Lovenox 30 mg SQ BID (WT < 150 kg, CrCl > 30 mL/min) AND *Sequential Compression Device (SCD) Assessment and Plan - Plan Assessment/plan: 1. Chest pain/wide-complex tachycardia/coronary artery disease EKG in the emergency department significant for sinus tachycardia with frequent PVCs, personally reviewed ACS rule out pending; serial troponins/EKGs Patient's library paraprofessional consulted, Dr. Millan, appreciate recommendations Telemetry Continue aspirin and Plavix 2. Diabetes mellitus Holding long-acting insulin as patient n.p.o. Sliding-scale insulin Monitor blood glucose 3. Hypertension/hyperlipidemia Continue home medications FEN N.p.o. Electrolytes: Monitor and replete as needed NS at 125 cc/hour Heparin
[2018-08-04] MEDS: Sod Chloride 0.9% Inj 1,000 ML IV.CONT SCH (23:57)
[2018-08-05 00:54] LABS: Troponin I 0.67 ng/mL (0.02-0.05)
[2018-08-05] MEDS ORDERED: Heparin Drip 25,000 UNIT/250 ML BAG IV.CONT PRN (01:16)
[2018-08-05] MEDS ORDERED: Heparin 10,000 UNITS/10 ML Vial (for IV use) IV.PUSH STA (01:17)
[2018-08-05 02:42] LABS: Prothrombin Time 10.6 sec (9.8-11.6)
[2018-08-05] MEDS ORDERED: Chlorhexidine Gluconate 2% 1 Pack (2 Cloths) TOPICAL PRN (04:00)
[2018-08-05] MEDS ORDERED: Heparin - SQ 10,000 UNITS/ML Vial SQ SCH (06:00)
[2018-08-05] MEDS: Insulin NovoLOG Aspart Correctional Sugar Inj SQ SCH ×5 (06:02→22:00)
[2018-08-05] MEDS: Chlorhexidine Gluconate 2% 1 Pack (2 Cloths) TOPICAL SCH (06:02)
[2018-08-05 07:01] LABS: White Blood Count 8.7 th/mm3 (4.0-11.0)
[2018-08-05 07:02] LABS: Baso % (Auto) 0.5 % (0.0-2.0); Eos # (Auto) 0.1 th/mm3 (0.0-0.4); Eos % (Auto) 1.5 % (0.0-4.0); Hematocrit 41.6 % (39.0-51.0); Hemoglobin 13.7 gm/dL (13.0-17.0); Lymph # (Auto) 2.4 th/mm3 (1.0-4.8); Mean Corpuscular Hemoglobin 29.2 pg (27.0-34.0); Mean Corpuscular Volume 88.5 fL (80.0-100.0); Mean Platelet Volume 8.7 fL (7.0-11.0); Mono # (Auto) 0.6 th/mm3 (0.0-0.9); Mono % (Auto) 7.1 % (0.0-8.0); Neut # (Auto) 5.5 th/mm3 (1.8-7.7); Neut % (Auto) 62.9 % (16.0-70.0); Platelet Count 221 th/mm3 (150-450)
[2018-08-05 07:10] LABS: Calcium 8.8 mg/dL (8.5-10.1); Carbon Dioxide 24.4 meq/L (21.0-32.0)
[2018-08-05 07:27] LABS: Troponin I 0.8 ng/mL (0.02-0.05)
[2018-08-05] MEDS: Allopurinol 100 MG Tablet PO SCH ×2 (08:35→22:00)
[2018-08-05] MEDS: Carvedilol 6.25 MG Tablet PO SCH ×2 (08:35→22:00)
[2018-08-05] MEDS: Pantoprazole Sodium 20 MG DR Tablet PO SCH (08:36)
[2018-08-05] MEDS: Sod Chloride 0.9% Inj 1,000 ML IV.CONT SCH ×3 (09:21→18:22)
[2018-08-05] MEDS ORDERED: fentaNYL Citrate Inj 100 MCG/2 ML Ampul ONE (12:50)
[2018-08-05] MEDS ORDERED: Heparin 10,000 UNITS/10 ML Vial (for IV use) ONE (12:50)
[2018-08-05] MEDS ORDERED: Heparin/NS PF Inj 1,500 ML ONE (12:50)
--- NOTE | 2018-08-05 14:24 | CATHPROC ---
[employer] HIS Report Study Information Study Number Admission Scheduled Start Study Start [id number] Aug 04 2018 8:52PM 08/05/2018 Aug 05 2018 12:51PM [place] [facility] Cardiac Catheterization Admit Source Facility Department Other [facility] - [facility] Physician and Clinical Staff Initial Mario Malone Thread Dresser Beverly Mathew,RN Thread Dresser Radha Roper,ISIS Recorder Keiko Arndt,COMMUNITY SERVICE PATROL OFFICER TECH2 Scrub Yumiko Milian,BEAMER HELPER TECH2 Procedures Performed Procedure Location (Site) Vessel Name Angiogram LV LV Ventricle Coronary Angiograms LCA Left Coronary Coronary Angiograms RCA Right Coronary L Heart Cath Equipment Time Watch Assembler Description Size Mfg Part Number Used/Scraped TRANSDUCER, TRUWAVE [id number] 12:54 LIANG BONILLA * Used W/STOCKCOCK *[id number] 13:59 Beatsy MEDICAL VASCADE, FR5 CLOSURE SYSTEM FR 5 Used *[id number] INTRODUCER SET, 13:19 [employer] FR 5 [id number] *[id number] Used MICROPUNCTURE STIFF [id number] *[id number] 12:54 [employer] BLANKET,WARM AIR CCL * Used *[id number] 12:54 [employer] PACK, CCL CUSTOM * Used *[id number] 12:54 PROSimity PACER PEN, SKIN DUAL W/ RULER * Used *[id number] 13:27 MEDTRONIC AR MOD DXTERITY CATHETER FR 5 [id number] Used PIG ANG 145 DXTERITY [id number] 13:45 [employer]TRONIC FR 5 Used CATHETER *[id number] 12:54 [employer] WIRE, 3MMJ .035 180CM 180CM Used *[id number] PROBE COVER, STERILE [id number] 12:54 Apos Therapy * Used ULTRASOUND W/ GEL *[id number] 12:54 NAMIC MANIFOLD, 4 PORT * Used *[id number] 12:54 NAMIC TUBING, HIGH PRESSURE 48" 48" Used *[id number] 13:46 NYCOMED OMNIPAQUE, 300 MG, 50ML 50ML [id number] Used 12:54 NYCOMED OMNIPAQUE, 350 MG, 150ML 150ML [id number] Used [id number] 12:54 TERUMO MEDICAL SHEATH, FR5 TERUMO (10CM) FR 5 Used *[id number] Equipment Model, Serial, Lot Number and Expiration Data Description Model Number Serial Number Lot Number Expiration Date AR MOD DXTERITY CATHETER [id number] 12-09-2020 History: Current Medications Medication Dosage/Unit Route Frequency Last Date/Time Taken Insulin Glucophage COZAAR CARVEDILOL ASA PLAVIX History: Allergies Allergy Reaction No Known Allergies History: Risk Factors Family History of Hypertension Dyslipidemia Previous OR Previous Heart Failure Premature CAD Yes Yes No Yes No Prior Valve Prior PCI Prior PCIDate Prior CABG Surgery No Yes 10/05/2013 No Cerebrovascular Peripheral Artery Chronic Lung On Dialysis Diabetes Diabetes Therapy Disease Disease Disease No No No No Yes Insulin History: Symptoms/Diagnosis Selection Items Chest pain History: CV Disease Selection Items Known CAD History: Stress Tests Stress or Imaging Studies Performed No History: Other Disease Selection Items CAD Gerd HTN History: Other Current Smoker Method No Cigarettes Labs Hgb (g/dl) Hct (%) RBC (MIL/MM3) WBC (l/cumm) Platelets (thousands) 11.60-17.00 35.00-51.00 4.00-5.90 4.00-11.00 150.00-450.00 13.7 41.6 4.7 8.7 221 Glucose (mg/dl) BUN (mg/dl) Creatinine (mg/dl) BUN:Creatinine (1:x) 74.00-106.00 7.00-18.00 0.50-1.30 10.00-20.00 191 15 0.9 16.7 Na (meq/l) K (meq/l) Cl (meq/l) CO2 (mmol/L) Ca (mg/dl) 136.00-145.00 3.50-5.10 98.00-107.00 21.00-32.00 8.50-10.10 140 4 105 24.4 8.8 PT (sec) PTT (sec) INR (PTT:PT) 9.80-11.60 24.30-30.10 0.90-1.10 10.6 31.5 1 Troponin I (ng/ml) CPK (u/l) CPK-MB (ng/ML) 0.02-0.05 26.00-308.00 0.50-3.60 0.8 130 Not Drawn Medication Medication Total Dose (Bolus/Oral) Medication Total Dosage/Unit 1% XYLOCAINE 20 mL FENTANYL 75 mcg OXYGEN 4 l/min VERSED 4 mg Medications (Bolus/Oral) Medication Time Given Dosage/Unit Administered By Reason OXYGEN 08/05/2018 12:55:55 PM 4 l/min Radha Roper 4 l/min OXYGEN given in lab by Radha Roper RN via Nasal. Ordered by Mario Millan. VERSED 08/05/2018 1:16:27 PM 2 mg Radha Roper 2 mg VERSED given in lab by Radha Roper RN in Left Antecubital via Peripheral IV. Ordered by Mario Pratt. FENTANYL 08/05/2018 1:17:42 PM 50 mcg Radha Roper 50 mcg FENTANYL given in lab by Radha Roper RN in Left Antecubital via Peripheral IV. Ordered by Mario Millan. VERSED 08/05/2018 1:36:32 PM 2 mg Radha Roper 2 mg VERSED given in lab by Radha Roper RN in Left Antecubital via Peripheral IV. Ordered by Mario Pratt. FENTANYL 08/05/2018 1:37:27 PM 25 mcg Radha Roper 25 mcg FENTANYL given in lab by Radha Roper RN in Left Antecubital via Peripheral IV. Ordered by Mario Millan. 1% XYLOCAINE 08/05/2018 1:41:14 PM 20 mL Radha Roper 20 mL 1% XYLOCAINE given in lab by Radha Roper RN via Subcutaneous. Ordered by Mario Millan. Initial Case Assessment Cardiovascular HR Rhythm NIBP Chest Pain 80 reg 142/101 0 Edema Present Skin color Skin None Normal Warm Circulatory - Right Pulses Dorsalis Pedis Femoral 3 1 Scale (0,1,2,3,4,d) Circulatory - Left Pulses Dorsalis Pedis Femoral 3 1 Scale (0,1,2,3,4,d) Circulatory - Lower Extremities Color Lower Right Color Lower Left Normal Normal Neurological State Oriented to time-place- Alert Moves all extremities person Respiration - General Respiration Rate SpO2 (%) O2 (lpm) (B/min) 24 98 2 Final Case Assessment Cardiovascular HR Rhythm NIBP Chest Pain 83 reg 145/94 0 Edema Present Skin color Skin None Normal Warm Circulatory - Right Pulses Dorsalis Pedis Femoral 3 1 Scale (0,1,2,3,4,d) Circulatory - Left Pulses Dorsalis Pedis Femoral 3 1 Scale (0,1,2,3,4,d) Circulatory - Lower Extremities Color Lower Right Color Lower Left Normal Normal Neurological State Oriented to time-place- Alert Moves all extremities person Respiration - General Respiration Rate SpO2 (%) O2 (lpm) (B/min) 17 98 2 Chronological Log Time Study Chronological Log 12:50:41 Patient arrived via Bed. 12:50:44 Patient Name, D.O.B, / Armband Verified By R.N. 12:50:44 Consent signed by the physician and the patient and verified by the [facility] staff. 12:50:45 Pre-op and post- op instructions given; patient acknowledges understanding of instructions. 12:50:45 Verbal Stimulation=2 Physical Stimulation=2 Airway=2 Respiration=2 TOTAL=8. (0=absent, 1=li mited, 2=present) 12:50:48 Patient has been NPO for More than 6Hrs. 12:50:49 Skin Breakdown-none 12:50:53 A # 20 IV was noted in the Antecubital (left). Grade = 0 12:51:39 A # 20 IV was noted in the Hand (left). Grade = 0 12:51:52 heparin discontiued in pts room at 12:40 pm 12:55:55 4 l/min OXYGEN given in lab by Radha Roper RN via Nasal. Ordered by Mario Millan. Vitals capture started with the following parameters, Patient=Adult, Interval=5 min, Initial Pr yewvoz=923 mmHg, 12:56:20 Deflation Rate=5 mmHg, Cuff placed on Left Arm 12:57:36 HR=78 bpm, CURT=437/108 mmhg, SpO2=98 %, Resp=20 B/min, Pain=0, Elizabeth=10, Lira=2 12:57:46 Reference ECG taken 13:00:22 HEPARIN DRIP DISCONTINUED AT 1240 13:01:10 History and physical on the chart or being dictated. Assessment: Initial Case, HR=80 BPM, Rhythm=reg, GLAJ=694/101 mmhg, Chest Pain=0, Edema=None, Color=Normal, Skin = Warm Right Pulses: Elvis Ped=3, Femoral=1 Left Pulses: Elvis Ped=3, Femoral=1 13:01:15 Lower Right Extremities: Color=Normal Lower Left Extremities: Color=Normal Neurological: State=Alert, Ox3, OBRIEN Respiration: Resp=24 B/min, SpO2=98 %, O2=2 lpm 13:02:00 HR=90 bpm, IGZI=000/101 mmhg, SpO2=98.0 %, Resp=23 B/min, Pain=0, Elizabeth=10, Liar=2 13:06:59 HR=80 bpm, RWZQ=507/106 mmhg, SpO2=98.0 %, Resp=22 B/min, Pain=0, Elizabeth=10, Lira=2 13:08:01 Bilateral groins prepped with 2% chlorhexidine, and draped after a 3 minute waiting time. 13:12:02 HR=89 bpm, ZLWI=581/97 mmhg, SpO2=99.0 %, Resp=14 B/min, Pain=0, Elizabeth=10, Lira=2 13:15:31 Pressure channel 1 zeroed. 13:16:27 2 mg VERSED given in lab by Radha Roper, ISIS in Left Antecubital via Peripheral IV. Orde red by Mario Millan. 13:17:03 HR=90 bpm, FPHN=462/104 mmhg, SpO2=98.0 %, Resp=15 B/min, Pain=0, Elizabeth=10, Lira=2 50 mcg FENTANYL given in lab by Radha Roper, ISIS in Left Antecubital via Peripheral IV. Yana hayes by Yana, 13:17:42 Mario. 13:22:00 HR=96 bpm, JBMP=029/90 mmhg, SpO2=92.0 %, Resp=20 B/min, Pain=0, Elizabeth=10, Lira=2 13:27:01 HR=83 bpm, YXNU=994/86 mmhg, SpO2=96.0 %, Resp=17 B/min, Pain=0, Elizabeth=10, Lira=2 13:31:58 HR=84 bpm, HZLL=996/96 mmhg, SpO2=97.0 %, Resp=12 B/min, Pain=0, Elizabeth=10, Lira=2 13:36:32 2 mg VERSED given in lab by Radha Roper RN in Left Antecubital via Peripheral IV. Orde red by Mario Millan. 13:36:59 HR=83 bpm, FLBU=912/97 mmhg, SpO2=98.0 %, Resp=19 B/min, Pain=0, Elizabeth=10, Lira=2 25 mcg FENTANYL given in lab by Radha Roper, RN in Left Antecubital via Peripheral IV. Orde red by Yana, 13:37:27 Mario. Time Out. Correct patient, correct procedure, correct physician, labs, allergies, and equipment verified with optical laboratory manager 13:40:10 team present. Fire risk assesment completed (see hard stop sheet for coding). Time Out Conc urred by MD and individual staff in procedure. 13:40:11 LV INJECTOR LOADED AND VERIFIED TO BE FREE OF AIR BY RADHA ROPER RN 13:40:15 Case Start 13:41:14 20 mL 1% XYLOCAINE given in lab by Radha Roper, RN via Subcutaneous. Ordered by Mario Millan. 13:42:02 HR=70 bpm, RBNA=914/92 mmhg, SpO2=95.0 %, Resp=18 B/min, Pain=0, Elizabeth=10, Lira=2 13:42:18 Access site was Right Femoral Artery. 13:42:25 A SHEATH, FR5 TERUMO (10CM) FR 5 was advanced into the Fem Art (right) using the Modified S eldinger technique. 13:43:46 A catheter was advanced over a wire. OMNIPAQUE, 350 MG, 150ML 150ML was used for injections . Recorded Pressure: LV, HR=85, Condition=Condition 1 13:44:46 (Left Ventricle) LV 126/17/19 13:45:47 The LV was injected at 10 cc/sec for a total of 30. OMNIPAQUE, 300 MG, 50ML 50ML used. 13:46:15 Activated Clotting Time Drawn Recorded Pressure: LV, Ao, HR=84, Condition=Condition 1 13:46:30 (Left Ventricle) LV 128/13/21, (Aorta) Ao 125/79/100 13:47:03 HR=86 bpm, UJOJ=155/79 mmhg, SpO2=97.0 %, Resp=19 B/min, Pain=0, Elizabeth=10, Lira=2 13:47:18 Catheter was removed A JL 4.0 INFINITI CATHETER FR 5 was advanced over a wire. OMNIPAQUE, 350 MG, 150ML 150ML was us ed for 13:47:20 injections. 13:48:26 The LCA was injected and visualized at various angles. OMNIPAQUE, 350 MG, 150ML 150ML used . Recorded Pressure: Ao, HR=76, Condition=Condition 1 13:48:34 (Aorta) Ao 131/83/104 13:50:21 Catheter was removed 13:51:08 ACT (Normal Range 90-180) = 118 A AR MOD DXTERITY CATHETER FR 5 was advanced over a wire. OMNIPAQUE, 350 MG, 150ML 150ML was us ed for 13:51:51 injections. 13:51:58 The RCA was injected and visualized at various angles. OMNIPAQUE, 350 MG, 150ML 150ML used . 13:52:02 HR=99 bpm, IYRR=015/93 mmhg, SpO2=96.0 %, Resp=13 B/min, Pain=0, Elizabeth=10, Lira=2 13:53:31 Catheter was removed 13:53:33 Case End (Physician broke scrub) 13:55:29 Catheter(s) removed without difficulty 13:56:28 An injection in the Fem Art (right) was made through the SHEATH, FR5 TERUMO (10CM) FR 5. 13:57:05 HR=92 bpm, IERJ=580/84 mmhg, SpO2=97.0 %, Resp=18 B/min, Pain=0, Elizabeth=10, Lira=2 14:01:10 VASCADE, FR5 CLOSURE SYSTEM FR 5 placement in the Fem Art (right) 14:02:04 HR=89 bpm, HCCQ=489/99 mmhg, SpO2=98.0 %, Resp=19 B/min, Pain=0, Elizabeth=10, Lira=2 14:07:01 HR=83 bpm, CDWN=310/94 mmhg, SpO2=97.0 %, Resp=17 B/min, Pain=0, Elizabeth=10, Lira=2 14:08:30 Sterile dressing applied to site 14:08:34 No case complications noted. 14:08:37 Cine recording checked. 14:08:42 Bedside Report will be given. 14:08:44 A Left Heart Cath was performed. Assessment: Final Case, HR=83 BPM, Rhythm=reg, KHTF=175/94 mmhg, Chest Pain=0, Edema=None, [place] r=Normal, Skin = Warm Right Pulses: Elvis Ped=3, Femoral=1 Left Pulses: Elvis Ped=3, Femoral=1 14:08:55 Lower Right Extremities: Color=Normal Lower Left Extremities: Color=Normal Neurological: State=Alert, Ox3, OBRIEN Respiration: Resp=17 B/min, SpO2=98 %, O2=2 lpm 14:09:02 Vitals capture stopped. 14:13:32 Patient moved to stretcher End Study - Contrast Media Used In Study Contrast Total Opened (mL) Total Used (mL) Total Wasted (mL) Omnipaque 115 115 0 End Study - Maximum Contrast Load Max Contrast Load (mL) 711.1 End Study - Radiation Exposure Fluoro Time (minutes) 2.1 End Study - Patient Disposition Complications Transferred To Telemetry Bed
--- NOTE | 2018-08-05 14:39 | P.CONCA ---
History of Present Illness Service: Cardiology Consult date: 08/05/18 Requesting Physician: Beverly Camarillo Reason for Consult: Wide-complex tachycardia Primary Care Provider: Guru Sumner MD Family Provider: Guru Sumner MD History of Present Illness: This is a 72-year-old male known to Dr. Millan with a past medical history of acute inferior wall myocardial infarction, cardiac catheterization with thrombectomy and stenting of the mid right coronary artery and mid posterior descending artery 2013, diabetes mellitus, dyslipidemia and obesity. He reports that yesterday he was sitting at home watching the [employer] game when he developed a sudden onset of chest pain. He also complained of feeling hot, dizzy and becoming diaphoretic, at this time stated that she administered nitro. His reports that he became unresponsive and his eyes rolled back in his head and he started to foam at the mouth and was not breathing so she called 911. On arrival to the scene, EMS found patient to be in a wide-complex tachycardia and hypotensive. EMS administered a total of 2 shocks which converted him back into sinus tachycardia with PVCs. He he became alert and was aware of EMS and transportation to the hospital. Currently, he denies any chest pain, palpitations, dizziness, pressure, edema or shortness of breath. Review of Systems All other systems reviewed negative except as stated in HPI PMFSH - History History Provided By: Patient - Medical History Medical History: Medical History (Last Updated 08/04/18 @ 22:31 by Beverly Camarillo MD) Diabetes GERD (gastroesophageal reflux disease) Gout Hyperlipidemia Hypertension Myocardial infarction - Surgical History Surgical History: Surgical History (Last Reviewed 08/04/18 @ 22:31 by Beverly Camarillo MD) H/O rotator cuff surgery Hx of tonsillectomy Stented coronary artery - Family History Family History: Family History (Last Updated 08/04/18 @ 22:31 by Beverly Camarillo MD) Other Coronary artery disease - Tobacco History Second Hand Smoke Exposure: No Tobacco Use In Past 30 Days: No Smoking Status: Former smoker - Alcohol History How Often Do You Have a Drink Containing Alcohol: Never - Substance Use History Substance History: No History of Abuse - Immunization History Tetanus Immunization: Unsure Medications and Allergies Allergies Allergy/AdvReac Type Severity Reaction Status Date / Time No Known Allergies Allergy Uncoded 10/03/13 18:50 Home Medications Medication Instructions Recorded Confirmed Type allopurinol 100 mg PO BID 08/04/18 08/04/18 History aspirin [Aspir-81] 81 mg PO DAILY 08/04/18 08/04/18 History carvedilol 6.25 mg PO BID 08/04/18 08/04/18 History cholecalciferol (vitamin D3) 1,000 unit PO DAILY 08/04/18 08/04/18 History [Vitamin D3] clopidogrel [Plavix] 75 mg PO DAILY 08/04/18 08/04/18 History insulin lispro [Humalog U-100 15 unit SUBCUT BID 08/04/18 08/04/18 History Insulin] losartan 25 mg PO DAILY 08/04/18 08/04/18 History metformin 1,000 mg PO BID 08/04/18 08/04/18 History omeprazole 20 mg PO DAILY 08/04/18 08/04/18 History sitagliptin [Januvia] 100 mg PO DAILY 08/04/18 08/04/18 History Active Medications: Active Medications Allopurinol (Zyloprim) 100 mg PO BID [facility] Last Admin: 08/05/18 08:35 Dose: 100 mg Aspirin (Ecotrin) 325 mg PO DAILY [facility] Last Admin: 08/05/18 08:35 Dose: 325 mg Carvedilol (Coreg) 6.25 mg PO BID [facility] Last Admin: 08/05/18 08:35 Dose: 6.25 mg Chlorhexidine Gluconate (Chlorhexidine 2% Cloth) 3 pack TOPICAL DAILY@0400 [facility] Stop: 08/10/18 03:59 Last Admin: 08/05/18 06:02 Dose: 3 pack Chlorhexidine Gluconate (Chlorhexidine 2% Cloth) 3 pack TOPICAL DAILY@0400 PRN PRN Reason: Extra cloth needed Stop: 08/10/18 03:59 Clopidogrel Bisulfate (Plavix) 75 mg PO DAILY [facility] Last Admin: 08/05/18 08:36 Dose: 75 mg Dextrose (D50w Vial) 50 ml IV.PUSH UNSCH PRN PRN Reason: PER HYPOGLYCEMIA PROTOCOL Glucagon (Glucagon Inj) 1 mg OTHER PRN PRN PRN Reason: for Hypoglycemia Protocol Sodium Chloride (Ns Inj) 1,000 mls @ 125 mls/hr IV.CONT .Q8H [facility] Last Admin: 08/05/18 09:21 Dose: 125 mls/hr Heparin Sodium/Dextrose (Heparin/D5w 25,000 U/250 Ml) 25,000 unit in 250 mls @ 10 mls/hr IV.CONT TITRATE PRN; Protocol PRN Reason: Per Protocol Last Admin: 08/05/18 03:14 Dose: 1,000 units/hr, 10 mls/hr Insulin Aspart (Novolog Insulin Correctional Sugar Inj) 0 unit SQ ACHS AND 3AM YESI; Protocol Last Admin: 08/05/18 12:29 Dose: 3 unit Losartan Potassium (Cozaar) 25 mg PO DAILY [facility] Last Admin: 08/05/18 08:36 Dose: 25 mg Ondansetron HCl (Zofran Inj) 4 mg IV.PUSH Q6H PRN PRN Reason: NAUSEA OR VOMITING Pantoprazole Sodium (Protonix) 20 mg PO DAILY [facility] Last Admin: 08/05/18 08:36 Dose: 20 mg Sodium Chloride (Ns Inj) 2 ml IV.FLUSH UNSCH PRN PRN Reason: FLUSH AFTER USING IV ACCESS Sodium Chloride (Ns Inj) 2 ml IV.FLUSH BID [facility] Last Admin: 08/05/18 08:36 Dose: 2 ml Exam Vital signs: Vital Signs 08/04/18 19:00 08/04/18 19:32 08/04/18 20:00 Temperature 98.9 F Pulse Rate 113 H Respiratory Rate 18 Blood Pressure 145/101 H Pulse Oximetry 96 96 95 08/05/18 00:00 08/05/18 04:00 08/05/18 08:00 Temperature 98.1 F 98.0 F 98.4 F Pulse Rate 81 77 77 Respiratory Rate 29 H 21 21 Blood Pressure 140/82 143/79 H 112/54 L Pulse Oximetry 98 98 94 L 08/05/18 09:00 08/05/18 11:44 08/05/18 12:00 Temperature 98.1 F Pulse Rate 96 H 78 76 Respiratory Rate 21 21 21 Blood Pressure 117/58 L 136/85 Pulse Oximetry 98 97 98 Intake & Output 08/04/18 08/05/18 08/05/18 18:59 06:59 18:59 Intake Total 1000 / 1000 Balance 1000 / 1000 Weight 128 kg Intake: IV 1000 / 1000 NS Inj 1,000 ML @ 125 mls/hr IV 1000 / 1000 .CONT .Q8H [facility] Rx#:[id number] Other: Weight On Admission 128 kg - Constitutional no acute distress - Routine HEENT Exam Head: Present: normocephalic Eye: Present: PERRL ENT: Present: mucous membranes moist - Routine Neck Exam Present: supple - Routine Respiratory Exam Present: CTA bilaterally - Routine Cardiovascular Exam Present: S1, S2. Absent: murmur, gallop, rubs Comments: Occ PVC's - Routine Abdominal Exam Present: normoactive bowel sounds - Routine Extremities Exam Present: full ROM, pulses intact, normal capillary refill. Absent: cyanosis, clubbing, edema - Routine Skin Exam Present: intact - Routine Neurological Exam Present: oriented X3 Results 08/05/18 05:07 08/05/18 05:07 Cardiac Enzymes 08/04/18 08/04/18 08/05/18 Range/Units 19:15 19:15 00:02 AST 53 H (15-37) U/L Troponin I 0.02 0.67 H* (0.02-0.05) ng/mL B-Natriuretic Peptide 130 H (0-100) pg/mL 08/05/18 Range/Units 05:07 AST (15-37) U/L Troponin I 0.80 H* (0.02-0.05) ng/mL B-Natriuretic Peptide (0-100) pg/mL Coagulation 08/04/18 08/04/18 08/05/18 Range/Units 19:15 19:15 02:16 PT 10.1 10.6 (9.8-11.6) sec APTT 22.6 L 24.0 L (24.3-30.1) sec B-Natriuretic Peptide 130 H (0-100) pg/mL 08/05/18 Range/Units 07:54 PT (9.8-11.6) sec APTT 31.5 H D (24.3-30.1) sec B-Natriuretic Peptide (0-100) pg/mL CBC 08/04/18 08/05/18 Range/Units 19:15 05:07 WBC 9.8 8.7 (4.0-11.0) th/mm3 RBC 4.88 4.70 (4.50-5.90) mil/mm3 Hgb 14.2 13.7 (13.0-17.0) gm/dL Hct 43.4 41.6 (39.0-51.0) % Plt Count 233 221 (150-450) th/mm3 Neut # (Auto) 4.8 5.5 (1.8-7.7) th/mm3 Lymph # (Auto) 4.0 2.4 (1.0-4.8) th/mm3 [place] # (Auto) 0.7 0.6 (0.0-0.9) th/mm3 Eos # (Auto) 0.3 0.1 (0.0-0.4) th/mm3 Baso # (Auto) 0.1 0.0 (0.0-0.2) th/mm3 Comprehensive Metabolic Panel 08/04/18 08/05/18 Range/Units 19:15 05:07 Sodium 138 140 (136-145) meq/L Potassium 3.9 4.0 (3.5-5.1) meq/L Chloride 105 105 (98-107) meq/L Carbon Dioxide 20.3 L 24.4 (21.0-32.0) meq/L BUN 14 15 (7-18) mg/dL Creatinine 1.19 0.95 (0.60-1.30) mg/dL Calcium 8.4 L 8.8 (8.5-10.1) mg/dL AST 53 H (15-37) U/L ALT 59 (12-78) U/L Alkaline Phosphatase 73 (45-117) U/L Total Protein 7.1 (6.4-8.2) g/dL Albumin 3.2 L (3.4-5.0) g/dL Intake and Output 08/04/18 08/05/18 08/05/18 22:59 06:59 14:59 Intake Total 1000 / 1000 Balance 1000 / 1000 Intake: IV 1000 / 1000 NS Inj 1,000 ML @ 125 mls/hr IV 1000 / 1000 .CONT .Q8H [facility] Rx#:[id number] Other: Weight 128 kg Weight On Admission 128 kg - Imaging and Cardiology Imaging: Impressions Chest X-Ray 08/04/18 19:05 CONCLUSION: Basilar density, probably atelectasis. Cardiomegaly. No pneumothorax or significant effusion. Assessment and Plan - Assessment (1) Chest pain Code(s): R07.9 - Chest pain, unspecified Status: Acute (2) Wide-complex tachycardia Code(s): I47.2 - Ventricular tachycardia Status: Acute (3) CAD (coronary artery disease) Code(s): I25.10 - Atherosclerotic heart disease of [place] coronary artery without angina pectoris Status: Acute (4) Hypertension Code(s): I10 - Essential (primary) hypertension Status: Acute - Plan With slightly elevated troponin, history of coronary artery disease and stent placement, the patient possibly suffered an acute myocardial event at home. Spoke with patient and family concerning cardiac catheterization and risk factors that include but not limited to bleeding or infection at insertion site , acute kidney injury, damage to coronary arteries, myocardial infarction, stroke and/or possibly . Patient and family verbalized understanding and wished to proceed with catheterization. We will continue with cardiac catheterization with possible coronary intervention today. Keep patient NPO except for medications and have consent signed and on the chart. We will follow patient during his hospitalization and follow-up in office post hospital discharge. The patient was seen and evaluated by Dr. Millan who participated in care, management and decision-making. - Attending Attestation Patient seen and examined. I reviewed and agree with the evaluation and plan as presented. Proceed with cardiac cath and possible PCI. If negative, will consider EPS/ICD for secondary SCD prevention.
--- NOTE | 2018-08-05 14:45 | MA ---
cc: Mario Millan MD DATE: 08/05/2018 INDICATIONS: VT cardiac arrest, coronary artery disease, history of inferior wall myocardial infarction and coronary stenting, congestive heart failure class III, angina class IV. PROCEDURE PERFORMED: 1. Retrograde left heart catheterization with left ventriculography and selective coronary angiography. 2. Moderate sedation. ACCESS SITE: Right femoral artery. EQUIPMENT USED: 5-[place] pigtail catheter, JL4 and AR modified coronary catheters. MEDICATIONS: Versed IV, fentanyl IV. CONTRAST: Omnipaque. ESTIMATED BLOOD LOSS: 115 mL. BLOOD LOSS: Less than 10 mL COMPLICATIONS: None. METHOD OF HEMOSTASIS: Vascular closure. RESULTS: A. HEMODYNAMICS: Heart rate 80 beats per minute. Left ventricular end-diastolic pressure 13 mmHg. Left ventricle 130/13. Aorta 130/83/104. B. LEFT VENTRICULOGRAPHY: Ejection fraction 30%. Wall motion: inferior akinesis. No mitral regurgitation. C. CORONARY ANGIOGRAPHY: Left main coronary patent. Left anterior descending artery has patent stent in the proximal portion and 30% stenosis in the mid portion and 50% in the distal portion. D1 and D2 have mild irregularities. Left circumflex artery has 30% stenosis in the mid portion. OM1 has 40% proximal stenosis. Right coronary artery is patent with a patent stent in the mid portion. The PDA has 40% ostial stenosis, PLV has 30% stenosis in the mid portion. DIAGNOSES: 1. Moderate coronary artery disease with patent stents in the left anterior descending artery and right coronary artery. 2. Ischemic cardiomyopathy with moderate to severe left ventricular systolic dysfunction. DISPOSITION: Mr. Hansen was found to have no evidence of significant obstructive coronary artery disease. His stents in the right coronary artery and left anterior descending artery remain patent. There is evidence of old inferior wall myocardial infarction with large inferior scar. This likely contributed to his ventricular tachycardia arrest. We will proceed with electrophysiology study and implantable defibrillator placement tomorrow. Mario Millan MD ONevaeh/swapnil , 02:15 PM , 02:24 PM JIMMY
[2018-08-05] MEDS ORDERED: Iohexol 350 MG/ML 50 ML Vial (for Cath Lab) IVCONTRAST ONE (14:56)
[2018-08-05] MEDS ORDERED: Iohexol 350 MG/ML 100 ML Vial (for Cath Lab) IVCONTRAST ONE (14:56)
--- NOTE | 2018-08-05 15:06 | ECG ---
Date Performed: 08/04/2018 Time Performed: 19:04:42 PTAGE: 72 years EKG: Sinus rhythm WITH FREQUENT VENTRICULAR PREMATURE COMPLEXES INFERIOR MYOCARDIAL INFARCTION ABNORMAL ECG INTERPRETA TION BASED ON A DEFAULT AGE OF 40 YEARS PREVIOUS TRACING : 10/04/2013 08.07 Since the previous tracing, no significant change not ed DOCTOR: Zhou Abernathy Interpretating Date/Time 08/05/2018 15:04:57
--- NOTE | 2018-08-05 15:07 | ECG ---
Date Performed: 08/04/2018 Time Performed: 22:36:29 PTAGE: 72 years EKG: Sinus rhythm WITH OCCASIONAL VENTRICULAR PREMATURE COMPLEXES POSSIBLE INFERIOR MYOCARDIAL INFARCTION , OF INDETER MINATE AGE ABNORMAL ECG PREVIOUS TRACING : 08/04/2018 19.04 Since the previous tracing, no significant change noted DOCTOR: Zhou Abernathy Interpretating Date/Time 08/05/2018 15:05:42
--- NOTE | 2018-08-05 15:15 | P.PN ---
Subjective Interval history: earlier am- had episodes of WCT just had cardiac cath by Dr Millan-no intervention done low EF d/w Dr. Millan- plan for AICD tomorrow telemetry in Physical Exam Vital signs: Vital Signs 08/04/18 19:00 08/04/18 19:32 08/04/18 20:00 Temperature 98.9 F Pulse Rate 113 H Respiratory Rate 18 Blood Pressure 145/101 H Pulse Oximetry 96 96 95 08/05/18 00:00 08/05/18 04:00 08/05/18 08:00 Temperature 98.1 F 98.0 F 98.4 F Pulse Rate 81 77 77 Respiratory Rate 29 H 21 21 Blood Pressure 140/82 143/79 H 112/54 L Pulse Oximetry 98 98 94 L 08/05/18 09:00 08/05/18 11:44 08/05/18 12:00 Temperature 98.1 F Pulse Rate 96 H 78 76 Respiratory Rate 21 21 21 Blood Pressure 117/58 L 136/85 Pulse Oximetry 98 97 98 Intake & Output 08/04/18 08/05/18 08/05/18 18:59 06:59 18:59 Intake Total 2009 Balance 2009 Weight 128 kg Intake: IV 1010 / 1010 Heparin/NS PF Inj 1,500 ML @ 0 10 / 10 mls/hr .ROUTE .[facility] Rx#: [id number] NS Inj 1,000 ML @ 125 mls/hr IV 1000 / 1000 .CONT .Q8H [facility] Rx#:[id number] Anesthesia Amount 1000 / 1000 Other: Weight On Admission 128 kg Narrative: Gen.: awake and alert, no acute distress, heavy set Head: Normocephalic. Atraumatic. EENT: Pupils equal round and reactive to light. Airway intact. Throat without injection. Cardiovascular: Regular rate and rhythm. No murmurs, rubs or gallops. Respiratory: No wheezes or rhonchi. Abdomen: Soft, nontender, nondistended. No peritoneal signs. Musculoskeletal: No gross deformities. No edema. right groin- cath site- no hematoma, good peripherl pulses Neuro: Sensory and motor grossly intact. Cranial nerves II through XII grossly intact. Results - Labs CBC & Chem 7: 08/07/18 05:44 08/05/18 05:07 Laboratory Results - last 24 hr 08/04/18 08/04/18 08/04/18 19:15 19:15 19:15 WBC 9.8 RBC 4.88 Hgb 14.2 Hct 43.4 MCV 89.0 MCH 29.2 MCHC 32.8 RDW 14.2 Plt Count 233 MPV 8.4 Neut % (Auto) 48.8 Lymph % (Auto) 40.3 [place] % (Auto) 7.1 Eos % (Auto) 3.2 Baso % (Auto) 0.6 Neut # (Auto) 4.8 Lymph # (Auto) 4.0 [place] # (Auto) 0.7 Eos # (Auto) 0.3 Baso # (Auto) 0.1 WBC Differential . Differential Comment Auto diff final PT 10.1 INR 1.0 APTT 22.6 L Sodium 138 Potassium 3.9 Chloride 105 Carbon Dioxide 20.3 L Anion Gap 13 BUN 14 Creatinine 1.19 Estimated GFR 60 L POC Glucose Random Glucose 291 H Calcium 8.4 L Total Bilirubin 0.3 AST 53 H ALT 59 Alkaline Phosphatase 73 Total Creatine Kinase 88 Troponin I 0.02 B-Natriuretic Peptide Total Protein 7.1 Albumin 3.2 L Lipase 87 Nasal Screen MRSA (PCR) 08/04/18 08/04/18 08/04/18 19:15 21:30 22:01 WBC RBC Hgb Hct MCV MCH MCHC RDW Plt Count MPV Neut % (Auto) Lymph % (Auto) [place]tholomew % (Auto) Eos % (Auto) Baso % (Auto) Neut # (Auto) Lymph # (Auto) [place] # (Auto) Eos # (Auto) Baso # (Auto) WBC Differential Differential Comment PT INR APTT Sodium Potassium Chloride Carbon Dioxide Anion Gap BUN Creatinine Estimated GFR POC Glucose 317 H Random Glucose Calcium Total Bilirubin AST ALT Alkaline Phosphatase Total Creatine Kinase Troponin I B-Natriuretic Peptide 130 H Total Protein Albumin Lipase Nasal Screen MRSA (PCR) Not detected 08/05/18 08/05/18 08/05/18 00:02 02:16 03:24 WBC RBC Hgb Hct MCV MCH MCHC RDW Plt Count MPV Neut % (Auto) Lymph % (Auto) [place]omew % (Auto) Eos % (Auto) Baso % (Auto) Neut # (Auto) Lymph # (Auto) [place] # (Auto) Eos # (Auto) Baso # (Auto) WBC Differential Differential Comment PT 10.6 INR 1.0 APTT 24.0 L Sodium Potassium Chloride Carbon Dioxide Anion Gap BUN Creatinine Estimated GFR POC Glucose 192 H Random Glucose Calcium Total Bilirubin AST ALT Alkaline Phosphatase Total Creatine Kinase 117 Troponin I 0.67 H* B-Natriuretic Peptide Total Protein Albumin Lipase Nasal Screen MRSA (PCR) 08/05/18 08/05/18 08/05/18 05:07 05:07 07:54 WBC 8.7 RBC 4.70 Hgb 13.7 Hct 41.6 MCV 88.5 MCH 29.2 MCHC 33.0 RDW 14.0 Plt Count 221 MPV 8.7 Neut % (Auto) 62.9 Lymph % (Auto) 28.0 [place]w % (Auto) 7.1 Eos % (Auto) 1.5 Baso % (Auto) 0.5 Neut # (Auto) 5.5 Lymph # (Auto) 2.4 [place] # (Auto) 0.6 Eos # (Auto) 0.1 Baso # (Auto) 0.0 WBC Differential . Differential Comment Auto diff final PT INR APTT 31.5 H D Sodium 140 Potassium 4.0 Chloride 105 Carbon Dioxide 24.4 Anion Gap 11 BUN 15 Creatinine 0.95 Estimated GFR 78 L POC Glucose Random Glucose 191 H D Calcium 8.8 Total Bilirubin AST ALT Alkaline Phosphatase Total Creatine Kinase 130 Troponin I 0.80 H* B-Natriuretic Peptide Total Protein Albumin Lipase Nasal Screen MRSA (PCR) 08/05/18 08/05/18 09:07 12:11 WBC RBC Hgb Hct MCV MCH MCHC RDW Plt Count MPV Neut % (Auto) Lymph % (Auto) [place]omew % (Auto) Eos % (Auto) Baso % (Auto) Neut # (Auto) Lymph # (Auto) [place] # (Auto) Eos # (Auto) Baso # (Auto) WBC Differential Differential Comment PT INR APTT Sodium Potassium Chloride Carbon Dioxide Anion Gap BUN Creatinine Estimated GFR POC Glucose 225 H 243 H Random Glucose Calcium Total Bilirubin AST ALT Alkaline Phosphatase Total Creatine Kinase Troponin I B-Natriuretic Peptide Total Protein Albumin Lipase Nasal Screen MRSA (PCR) - Imaging Impressions Chest X-Ray 08/04/18 19:05 CONCLUSION: Basilar density, probably atelectasis. Cardiomegaly. No pneumothorax or significant effusion. - Procedures 08/01- cardiac cath- clean coronaries- no intervention one poor EF Assessment and Plan - Plan 72 years old male presented with chest pain, diaphoresis 08/05 with shortness of breath called EVAC was noted to be in WCT and cardioverted on the field NSTEMI - Chest pain/wide with complex tachycardia - currently in SR Ischemic Cardiomyopathy- low EF S/P cath 08/05- patent stents with scar History of hypertension HYperlipidemia - Dr. Millan ff - plan for AICD in am - Continue aspirin and Plavix, coreg, cozaar - check lipid panel- restart his Atorvastatin 40 mg hs (home meds) Diabetes mellitus, type 2 insulin requiring = ff by Dr. 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 brock
[2018-08-06] MEDS: Sod Chloride 0.9% Inj 1,000 ML IV.CONT SCH ×2 (00:50→17:25)
[2018-08-06 05:58] LABS: Hematocrit 39.7 % (39.0-51.0); Hemoglobin 13.3 gm/dL (13.0-17.0); Mean Corpuscular HGB Conc 33.5 % (32.0-36.0); Mean Corpuscular Hemoglobin 29.7 pg (27.0-34.0); Mean Corpuscular Volume 88.5 fL (80.0-100.0); Mean Platelet Volume 8.4 fL (7.0-11.0); Platelet Count 193 th/mm3 (150-450); Red Blood Count 4.48 mil/mm3 (4.50-5.90); Red Cell Distribution Width 14.5 % (11.6-17.2); White Blood Count 8.7 th/mm3 (4.0-11.0)
[2018-08-06] MEDS: Chlorhexidine Gluconate 2% 1 Pack (2 Cloths) TOPICAL SCH (06:13)
[2018-08-06] MEDS: Insulin NovoLOG Aspart Correctional Sugar Inj SQ SCH ×5 (06:17→21:17)
[2018-08-06] MEDS: Carvedilol 6.25 MG Tablet PO SCH ×4 (06:20→21:13)
[2018-08-06 06:21] LABS: Chol/HDL Ratio 3.06 Ratio; HDL Cholesterol 28.7 mg/dL (40.0-60.0)
[2018-08-06] MEDS: Pantoprazole Sodium 20 MG DR Tablet PO SCH (09:40)
[2018-08-06] MEDS: Allopurinol 100 MG Tablet PO SCH ×2 (09:40→21:12)
--- NOTE | 2018-08-06 10:52 | P.PNIM ---
Subjective Interval history: Patient reports he is feeling well this morning. No chest pain or shortness of breath. He will have AICD placed today. Physical Exam Vital signs: Vital Signs 08/05/18 11:44 08/05/18 12:00 08/05/18 15:00 Temperature 98.1 F Pulse Rate 78 76 87 Respiratory Rate 21 21 Blood Pressure 136/85 Pulse Oximetry 97 98 08/05/18 16:00 08/05/18 17:00 08/05/18 18:00 Temperature 97.8 F Pulse Rate 83 90 96 H Respiratory Rate 18 Blood Pressure 131/101 H Pulse Oximetry 95 08/05/18 19:00 08/05/18 20:00 08/05/18 21:00 Temperature 97.8 F Pulse Rate 92 H 79 92 H Respiratory Rate 18 Blood Pressure 143/86 H Pulse Oximetry 96 08/05/18 22:00 08/05/18 23:00 08/06/18 00:00 Temperature Pulse Rate 82 78 74 Respiratory Rate 16 Blood Pressure 138/86 Pulse Oximetry 96 08/06/18 01:00 08/06/18 02:00 08/06/18 03:00 Temperature Pulse Rate 82 74 82 Respiratory Rate Blood Pressure Pulse Oximetry 08/06/18 04:00 08/06/18 05:00 08/06/18 06:00 Temperature Pulse Rate 77 77 78 Respiratory Rate 16 Blood Pressure 168/104 H Pulse Oximetry 95 08/06/18 07:00 08/06/18 08:00 08/06/18 08:20 Temperature 98.0 F Pulse Rate 87 85 74 Respiratory Rate 16 Blood Pressure 143/105 H Pulse Oximetry 94 L 08/06/18 09:00 08/06/18 10:00 Temperature Pulse Rate 87 82 Respiratory Rate Blood Pressure Pulse Oximetry Intake & Output 08/05/18 08/06/18 08/06/18 18:59 06:59 18:59 Intake Total 3190 / 3190 1380 / 1380 250 / 250 Output Total 300 / 300 700 / 700 Balance 2890 / 2890 680 / 680 250 / 250 Weight 129.9 kg Intake: IV 1710 / 1710 1140 / 1140 250 / 250 Heparin/NS PF Inj 1,500 ML @ 0 10 / 10 mls/hr .ROUTE .[facility] Rx#: [id number] Heparin/D5W 25,000 U/250 mL 25, 250 / 250 000 unit In 250 ml @ 1,000 UNITS/HR 10 mls/hr IV.CONT TITRATE PRN Rx#:[id number] NS Inj 1,000 ML @ 40 mls/hr IV. 1700 / 1700 1140 / 1140 CONT .Q24H [facility] Rx#:[id number] Oral 480 / 480 240 / 240 Anesthesia Amount 1000 / 1000 Output: Urine 300 / 300 700 / 700 Other: Date of Last Bowel Movement 08/03/18 08/03/18 08/06/18 Narrative: GENERAL: This is a well-nourished, well-developed patient, in no apparent distress. CARDIOVASCULAR: Normal rate and regular rhythm without murmurs, gallops, or rubs. RESPIRATORY: Good respiratory efforts. Breath sounds equal and clear to auscultation bilaterally. GASTROINTESTINAL: Abdomen soft, non-tender, non-distended. Normal active bowel sounds MUSCULOSKELETAL: Extremities without cyanosis, or edema. NEURO: Alert & Oriented x4 to person, place, time, situation. Moves all ext x4 PSYCH: Appropriate mood and affect. Results - Labs CBC & Chem 7: 08/06/18 05:16 08/05/18 05:07 Laboratory Results - last 24 hr 08/05/18 08/05/18 08/05/18 12:11 16:10 16:44 WBC RBC Hgb Hct MCV MCH MCHC RDW Plt Count MPV APTT 25.4 POC Glucose 243 H 209 H Triglycerides Cholesterol LDL Cholesterol, Calc HDL Cholesterol Cholesterol/HDL Ratio 08/05/18 08/06/18 08/06/18 21:42 05:16 05:16 WBC 8.7 RBC 4.48 L Hgb 13.3 Hct 39.7 MCV 88.5 MCH 29.7 MCHC 33.5 RDW 14.5 Plt Count 193 MPV 8.4 APTT POC Glucose 255 H Triglycerides 141 Cholesterol 88 L LDL Cholesterol, Calc 31 HDL Cholesterol 28.7 L Cholesterol/HDL Ratio 3.06 08/06/18 08/06/18 06:03 07:46 WBC RBC Hgb Hct MCV MCH MCHC RDW Plt Count MPV APTT POC Glucose 203 H 204 H Triglycerides Cholesterol LDL Cholesterol, Calc HDL Cholesterol Cholesterol/HDL Ratio - Procedures 08/01- cardiac cath- clean coronaries- no intervention one poor EF Assessment and Plan - Plan 72 years old male presented with chest pain, diaphoresis 08/05 with shortness of breath called EVAC was noted to be in WCT and cardioverted on the field: NSTEMI - Chest pain/wide with complex tachycardia - currently in SR Ischemic Cardiomyopathy- low EF S/P cath 08/05- patent stents. 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 History of hypertension Hyperlipidemia - Dr. Millan, cardiology planning for AICD placement today - Continue aspirin and Plavix, coreg, cozaar - Atorvastatin 40 mg hs (home meds) Diabetes mellitus, type 2 insulin requiring -Follows with title search manager Dr. Null as OP, per patient last A1C is 8- On metformin as OP- hold with post cath, Humalog 15 units tid before each emals and long acting Insulin at hs= as P{ - placed on sliding scale insulin for now History of hyperuricemia- on allopurinol as OP PCP- Dr. brock Discharge Planning: Anticipate discharge in the morning if no complications from the procedure and he remained stable in the morning.
[2018-08-06] MEDS ORDERED: Phenylephrine/NS 1000 MCG/10ML Syringe IV.PUSH ONE (13:24)
[2018-08-06] MEDS ORDERED: Sodium Chlor 0.9% Inj 1,000 ML IV.CONT ONE (13:24)
[2018-08-06] MEDS ORDERED: Lidocaine PF 1% Inj 5 ML Syringe OTHER ONE (13:24)
[2018-08-06] MEDS ORDERED: Heparin/NS PF Inj 500 ML ONE (13:28)
[2018-08-06] MEDS ORDERED: Isoproterenol HCl Inj 0.2 MG/ML Ampul ONE (13:54)
--- NOTE | 2018-08-06 14:19 | CATHPROC ---
Patient Name: Marco Hansen Study #: [id number] Initial MD: Mario Millan Date of : 1945 Study Date: 08/06/2018 Cardiac Catheterization Report 08/06/2018 2:18:38 PM Financial #: [id number] 1 of 6 Patient Name: Marco Hansen Study #: [id number] Initial MD: Mario Millan Date of : 1945 Study Date: 08/06/2018 Entire Case Report Patient Information Patient Name Marco Hansen Date of 1945 Age 72 years Financial # [id number] Gender M AlternateID Lab Number 6 Room Number 254 Height (in) 71.0 Height (cm) 180.3 BSA 2.46 Weight (lbs) 285.8 Weight (kg) 129.9 Patient Address/Phone Number Home Address [facility] Home Phone Number [phone] [facility] [address] Study Information Study Number Admission Scheduled Start Study Start [id number] Aug 04 2018 8:52PM 08/06/2018 Aug 06 2018 12:16PM Era Service Cardiac Catheterization Admit Source Facility Department [facility] - [facility] Physician and Clinical Staff Initial Mario Malone Community Support Professional Jacques Queen,RT(R) Other Anesthesia, HEAD BANDER AND LINER OPERATOR Recorder Anel Mi,ISIS Scrub Ann Hernandez,RT(R) TECH2 Procedures Performed Procedure Cardioversion 08/06/2018 2:18:38 PM Financial #: [id number] 2 of 6 Patient Name: Marco Hansen Study #: [id number] Initial MD: Mario Millan Date of : 1945 Study Date: 8 Equipment Time Hay Chopper Description Size Mfg Part Number Used/Scraped [id number] 12:20 [employer] BLANKET,WARM AIR CCL * Used *[id number] 12:20 [employer] PACK, CCL CUSTOM * Used *[id number] 12:20 [employer] PACER JOHNS, LIMB * 2530 *[id number] Used [id number] 12:20 [employer] CATHETER, JSN, QUAD FR 5 Used *[id number] 12:20 [employer] MEDICAL CATHETER, JSN, QUAD FR 5 Used *[id number] 12:20 [employer] MEDICAL CATHETER, JSN, QUAD FR 5 Used *[id number] 12:20 [employer]. [employer] MEDICAL SHEATH, EPS, FR7 FAST CATH FR 7 [id number] Used 12:20 [employer] MEDICAL SHEATH, EPS, FR7 FAST CATH FR [address] [id number] Used 12:20 [employer] MEDICAL SHEATH, EPS, FR7 FAST CATH FR 7 [id number] Used Insurance Information Insurance Payor Private Health Insurance Third Constitution Party Third Constitution Party Number [place] MED[place] BCMCR Medication Medication Total Dose (Bolus/Oral) Medication Total Dosage/Unit 1% XYLOCAINE 20 mL Medications (Bolus/Oral) Medication Time Given Dosage/Unit Administered By Reason 1% XYLOCAINE 08/06/2018 1:55:39 PM 20 mL Mario Millan 20 mL 1% XYLOCAINE given in lab by Mario Millan in Right Groin via Subcutaneous. Ordered by Mario Cadena. Medication (Drip) Medication Time Given Dosage/Unit Concentration/Unit Diluent (ml) Solution ANCEF 08/06/2018 1:55:50 PM 2 g 2 g ANCEF given in lab by Anesthesia, HEAD BANDER AND LINER OPERATOR via Peripheral IV. Ordered by Mario Millan. VANCOMYCIN DRIP 08/06/2018 1:25:20 PM 1 g 1 g VANCOMYCIN DRIP given in lab by Anesthesia, HEAD BANDER AND LINER OPERATOR in Left Wrist via Peripheral IV. Ordered by Mario Duarte. 08/06/2018 2:18:38 PM Financial #: [id number] 3 of 6 Patient Name: Marco Hansen Study #: [id number] Initial MD: Mario Millan Date of : 1945 Study Date: 08/06/2018 Initial Case Assessment Cardiovascular HR Rhythm NIBP Chest Pain 85 SR 158/88 0 Edema Present Skin color Skin None Normal Warm Dry Circulatory - Right Pulses Dorsalis Pedis 1 Scale (0,1,2,3,4,d) Circulatory - Left Pulses Dorsalis Pedis 1 Scale (0,1,2,3,4,d) Neurological State Oriented to time-place- Alert Moves all extremities person Respiration - General Respiration Rate SpO2 (%) (B/min) 20 99 Chronological Log Time Study Chronological Log 13:01:33 Patient arrived via Bed. 13:01:35 Patient Name, D.O.B, / Armband Verified By R.N. 13:01:37 Consent signed by the physician and the patient and verified by the [employer] staff. 13:01:38 Pre-op and post- op instructions given; patient acknowledges understanding of instructions. 13:02:57 Verbal Stimulation=2 Physical Stimulation=2 Airway=2 Respiration=2 TOTAL=8. (0=absent, 1=li mited, 2=present) 13:03:17 Presedation assessment performed by [employer] Repairer RN. 13:15:00 History and physical on the chart or being dictated. 13:20:00 Table restraints applied according to hospital policy 13:20:00 Bilateral groins prepped with 2% chlorhexidine, and draped after a 3 minute waiting time. 13:23:00 Anesthesia at bedside. Assumes care of patient. SEE RECORDS FOR MEDS AND VITALS DURING PROC EDURE 13:25:20 1 g VANCOMYCIN DRIP given in lab by Anesthesia, HEAD BANDER AND LINER OPERATOR in Left Wrist via Peripheral IV. Order ed by Mario Millan. 13:37:00 Reference ECG taken 08/06/2018 2:18:38 PM Financial #: [id number] 4 of 6 Patient Name: Marco Hansen Study #: [id number] Initial MD: Mario Millan Date of : 1945 Study Date: 08/06/2018 Assessment: Initial Case, HR=85 BPM, Rhythm=SR, EWCX=968/88 mmhg, Chest Pain=0, Edema=None, Co christiano=Normal, Skin = Warm, Dry Right Pulses: Elvis Ped=1 13:40:53 Left Pulses: Elvis Ped=1 Neurological: State=Alert, Ox3, OBRIEN Respiration: Resp=20 B/min, SpO2=99 % 13:42:14 MD paged 13:45:20 MD arrived. Time Out. Correct patient, procedure, procedure equipment, site and side verified with physici an present. Time 13:54:20 concurred by MD, individual staff and HEAD BANDER AND LINER OPERATOR. Time Out #2 - Consents verified, patient in correct position, all results are labled and displ ayed, safety precautions 13:54:26 taken, antibiotics administered. Time out concurred by MD, individual staff and HEAD BANDER AND LINER OPERATOR in proced ure 13:54:53 Case Start 13:55:00 Vascular access was obtained in the Fem Vein (left). 13:55:39 20 mL 1% XYLOCAINE given in lab by Mario Millan in Right Groin via Subcutaneous. Ordere d by Mario Millan. 13:55:50 2 g ANCEF given in lab by Anesthesia, HEAD BANDER AND LINER OPERATOR via Peripheral IV. Ordered by Mario Millan. 13:56:00 Vascular access was obtained in the Fem Vein (right). 13:57:00 Vascular access was obtained in the Fem Vein (right). 13:58:00 Vascular access was obtained in the Fem Vein (right). 13:59:00 A SHEATH, EPS, FR7 FAST CATH FR 7 was advanced into the Fem Vein (right) using the Modifie d Seldinger technique. 14:00:00 A SHEATH, EPS, FR7 FAST CATH FR 7 was advanced into the Fem Vein (right) using the Modifie d Seldinger technique. 14:02:00 A SHEATH, EPS, FR7 FAST CATH FR 7 was advanced into the Fem Vein (right) using the Modifie d Seldinger technique. A CATHETER, JSN, QUAD FR 5 was advanced vis Fem Vein (right) and placed in the CS. Placement w as visually 14:03:00 confirmed under fluoroscopy. A CATHETER, JSN, QUAD FR 5 was advanced vis Fem Vein (right) and placed in the HRA. Placement was visually 14:08:24 confirmed under fluoroscopy. A CATHETER, JSN, QUAD FR 5 was advanced vis Fem Vein (right) and placed in the RVA. Placement was visually 14:08:33 confirmed under fluoroscopy. 14:13:59 ECG rhythm of VF noted. Patient cardioverted at 200 joules. Success 14:14:56 VFIB INDUCED EP STUDY END SET UP FOR LEFT UPPER CHEST ICD IMPLANT End Study - Contrast Media Used In Study Contrast Total Opened (mL) Total Used (mL) Total Wasted (mL) Unspecified 0 0 0 End Study - Radiation Exposure Fluoro Time (minutes) 1.8 08/06/2018 2:18:38 PM Financial #: [id number] 5 of 6 Patient Name: Marco Hansen Study #: [id number] Initial MD: Mario Millan Date of : 1945 Study Date: 08/06/2018 End Study - Patient Disposition Complications Transferred To Interventional Outcome No [employer] successful 08/06/2018 2:18:38 PM Financial #: [id number]
--- NOTE | 2018-08-06 15:08 | MR ---
cc: Mario Millan MD DATE: 08/05/2018 ELECTROPHYSIOLOGY STUDY INDICATION: Ventricular tachycardia arrest. Congestive heart failure, Class III, ejection fraction 30%; the patient has been on Guideline-Directed Medical Therapy for over 3 months; ischemic cardiomyopathy. PROCEDURE PERFORMED: 1. Comprehensive electrophysiology study with right atrial and right ventricular pacing and sensing. 2. Coronary sinus cannulation with coronary sinus pacing and sensing. ACCESS SITE: Right femoral vein. EQUIPMENT USED: Quadripolar catheter x3. COMPLICATIONS: None. BLOOD LOSS: Less than 10 mL METHOD OF HEMOSTASIS: Manual compression. RESULTS: 1. Baseline EKG: Normal sinus rhythm, old inferior infarct, nonspecific T-wave changes. 2. Baseline intervals (milliseconds): RR 682, CO 208, QRS 124, QT 374, QTc 453, AH 100, HV 86. 3. Right atrial programmed electrical stimulation was performed at baseline. AV julian ERP 600/300; AV Wenckebach 380 milliseconds. 4. Coronary sinus stimulation was performed at baseline. No arrhythmias were induced. 5. Right ventricular program electrical stimulation was performed at baseline. RVRP: 600/240/270. 500/220/250 400/220/250 Closest coupling intervals: 600/270/220 (VT induced). 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 Induction: S3s at right ventricular apex. Cycle length: 292 milliseconds. Morphology/axis: Left bundle branch block/normal axis. Termination: 300 joule biphasic shock. DIAGNOSES: 1. 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 2. No inducible atrial arrhythmias. 3. HV interval 86 milliseconds. DISPOSITION: Mr. Hansen will undergo placement of a dual-chamber defibrillator. Mario Millan MD ONevaeh/swapnil , 02:24 PM , 02:34 PM MTDDylan
--- NOTE | 2018-08-06 16:22 | CATHPROC ---
[employer] HIS Report Study Information Study Number Admission Scheduled Start Study Start [id number] Aug 04 2018 8:52PM 08/06/2018 Aug 06 2018 2:19PM [place] Service Cardiac Pacer/ICD Admit Source Facility Department Other [facility] - Senior Manager [employer] Physician and Clinical Staff Initial MD Millan, Mario Merchandising Professor Anel Mi RN Other Anesthesia, MANAGER TRAINEE Recorder Radha Mercedes RN Scrub Ann Hernandez,RT(R) TECH2 Procedures Performed Procedure Lead Insertion Equipment Time Palliative Care Physician Description Size Mfg Part Number Used/Scraped 14:23 [employer] MEDICAL DRAPE, [place] X-RAY 12X17 12X17 D-100 *[id number] Used INTRODUCER SET, 14:23 [employer] FR 5 [id number] *[id number] Used MICROPUNCTURE STIFF INTRODUCER SET, 14:23 [employer] FR 5 [id number] *[id number] Used MICROPUNCTURE STIFF [id number] 14:23 [employer] BLANKET,WARM AIR CCL * Used *[id number] 14:23 [employer] DRAPE, IOBAN 2 [id number] 26cm x 20cm Used *1338840 TP-1103 14:23 [employer] SUTURE, STRIP PLUS 1/2" * Used *[id number] 14:23 MEDLINE PACER ADHESIVE, MASTISOL 2/3CC 2/3CC 0523-48 Used 14:23 MEDLINE PACER JOHNS, LIMB * 2530 *[id number] Used [id number] 14:23 MED[employer] PACER PACK, PACER CUSTOM * Used *[id number] 14:23 MEDLINE PACER PEN, SKIN DUAL W/ RULER * Used *[id number] 15:25 [employer] PACER SAFE SHEATH, FR7, 13CM FR 7 CLS-1007 Used 15:12 [employer] PACER SAFE SHEATH, FR9, 13CM FR 9 CLS-1009 Used PROBE COVER, STERILE [id number] 14:23 [employer] MEDICAL * Used ULTRASOUND W/ GEL *[id number] 14:46 Needle Sponge Count 2 22 Used 14:45 Needle Sponge Count 30 1 Used 14:45 Needle Sponge Count 5 5 Used [id number] *[id number] SUTURE, 0 ETHIBOND [CT1] (CX21D), 8pk SUTURE, 2-0 VICRYL [CT1] (DJM848H) SUTURE, 2-0 VICRYL [CT1] (EWX880Q) SUTURE, 4-0 VICRYL [PS2] (NXL061F) [facility] PAD, ELECTROSURGICAL 14:23 * E7507 *[id number] Used SURGICAL GROUNDING ORANGE DEFIBRILLATOR, EVERA MRI XT 15:31 [employer] DDE-DDDR [id number] Used [id number] 15:26 [employer] LEAD, CAPSUREFIX NOVUS 45CM 45CM Used *[id number] LEAD, SPRINT QUATTRO SECURE 15:21 [employer] * 6947M-62CM Used 62CM 6894-9210 14:23 [employer] MEDICAL LADI. / * Used *93455 Equipment Model, Serial, Lot Number and Expiration Data Description Model Number Serial Number Lot Number Expiration Date DEFIBRILLATOR, EVERA MRI XT [id number] 09-10-2019 LEAD, CAPSUREFIX NOVUS 45CM 5076 [id number] 01-08-2020 LEAD, SPRINT QUATTRO SECURE 6947m-62 [id number] 01-21-2019 62CM Medication Medication Total Dose (Bolus/Oral) Medication Total Dosage/Unit 2% XYLOCAINE 40 mL Medications (Bolus/Oral) Medication Time Given Dosage/Unit Administered By Reason 2% XYLOCAINE 08/06/2018 2:55:56 PM 40 mL Mario Millan 40 mL 2% XYLOCAINE given by Mario Millan in Left shoulder via Subcutaneous. Ordered by Junior Millan. Final Case Assessment Cardiovascular HR NIBP 78 101/63 Edema Present Skin color Skin None Normal Warm Dry Respiration - General Respiration Rate SpO2 (%) O2 (lpm) (B/min) 15 100 6 Chronological Log Time Study Chronological Log 14:15:00 NOTE: This patient is undergoing an additional procedure while still in the Cardiac Cath L ab. 14:15:00 Initial procedure has been completed. Beginning additional procedure. 14:22:09 Bovie ground pad applied to: RIGHT THIGH 14:22:16 2% CHLORHEXIDINE GLUCONATE WASH AND NASAL SWIPE DONE PRIOR TO PROCEDURE. 14:42:39 Reference ECG taken First Sponge And Instrument Count Done by Ann Hernandez, RT(R) TECH2. 14:43:48 Hypo's: 5, Sponges: 30, Bovie/scratch: 2 Sutures: 11, Blades: 2, Instruments: 26, Syveck Patches: 0 VERIFIED BY Barbara MI RN Time Out. Correct patient, procedure, procedure equipment, site and side verified with physici an present. Time 14:54:44 concurred by MD, individual staff and MANAGER TRAINEE. Time Out #2 - Consents verified, patient in correct position, all results are labled and displ ayed, safety precautions 14:55:18 taken, antibiotics administered. Time out concurred by MD, individual staff and MANAGER TRAINEE in proced ure 14:55:52 Case Start 14:55:56 40 mL 2% XYLOCAINE given by Mario Millan in Left shoulder via Subcutaneous. Ordered by Mario Millan. 14:57:13 Surgical Incision Made. 14:57:41 A pocket was created at the Lt. upper chest. 15:02:31 ONE sponge put into the surgical pocket. 15:05:28 Vascular access was obtained in the Subclav. Vein (Lft. A INTRODUCER SET, MICROPUNCTURE STIFF FR 5 was advanced into the Subclav. Vein (Lft using the Percutaneous 15::59 technique. 15:08:45 Wire removed. 15:08:49 Vascular access was obtained in the Subclav. Vein (Lft. A INTRODUCER SET, MICROPUNCTURE STIFF FR 5 was advanced into the Subclav. Vein (Lft using the P ercutaneous 15:: technique. 15::31 Wire removed 15:12:05 A SAFE SHEATH, FR9, 13CM FR 9 was advanced into the Lt. upper chest using the Modified Seld melchor technique. 15:13:35 10 more raytek sponges added to table (total 40 sponges) BY Barbara MI RN 15:13:53 A LEAD, SPRINT QUATTRO SECURE 62CM * was inserted and positioned in the RV. 15:18:09 Lead placement verified under fluoroscopy 15:19:14 The RV lead impedance and threshold being tested. 15:19:24 The RV lead was sutured to the fascia. 15:24:31 A SAFE SHEATH, FR7, 13CM FR 7 was advanced into the Subclav. Vein (Lft using the Elvi te chnique. 15:25:09 A LEAD, CAPSUREFIX NOVUS 45CM 45CM was inserted and positioned in the RA. 15:26:24 Lead placement verified under fluoroscopy 15::29 The Atrial lead impedance and threshold is being tested. 15:29:10 The Atrial lead was sutured to the fascia. 15:29:21 Antibiotic sponge removed from the surgical pocket. A DEFIBRILLATOR, EVERA MRI XT DR QUEZADA-DDDR was connected and placed in the pocket. device placed in a tyrex 15:30:58 pouch 15:35:01 Implant Procedure was performed. 15:35:07 A ICD Implant . (Dual) 15:35:17 Pocket flushed with antibiotic solution Second Sponge And Instrument Count Done by Anel Mi, ISIS. Hypo's: 5, Sponges: 30, Bovie/scratch: 2 15:35:45 Sutures: ~SUTURE~, Blades: 2, Instruments: ~INSTRU~, Syveck Patches: ~SYVECK PATCH~ and Ann Hernandez(10 more raytecs) total of 40 sponges 15:39:43 2 sutures added(13 total) and 10 more raytecs(total 50) 15:53:58 The DFT was Success at 20 Joules, 44 Ohms lead impedance and ~TIME~ 4.7seconds charge time. 15:55:05 The pocket was closed. 15:59:56 PACU called. Spoke to The Final Sponge And Instrument Count Done by Anel Mi, ISIS. 16:00:44 Hypo's: 5, Sponges: 50, Bovie/scratch: 2 Sutures: ~SUTURE~, Blades: ~BLADES~, Instruments: ~INSTRU~, Syveck Patches: ~SYVECK PATCH~ 16:13:31 Case End 16:13:41 Bedside Report will be given. 16:13:42 Steri-strips and a sterile dressing applied to site. 16:14:30 Sterile dressing applied to site 16:16:15 Implant Procedure was performed. 16:16:21 A ICD Implant . (Dual) 16:17:05 A sling was placed on the affected arm. 16:17:37 No case complications noted. 16:17:38 Cine recording checked. 16:17:42 Implantable Device card placed in patient's chart. Assessment: Final Case, HR=78 BPM, UCUX=895/63 mmhg, Edema=None, Color=Normal, Skin = Warm, Dr anna 16:20:50 Respiration: Resp=15 B/min, KbT1=904 %, O2=6 lpm 16:22:30 Patient moved to stretcher End Study - Contrast Media Used In Study Contrast Total Opened (mL) Total Used (mL) Total Wasted (mL) Omnipaque 0 0 0 End Study - Radiation Exposure Fluoro Time (minutes) 5.4 End Study - Patient Disposition Complications Transferred To No Telemetry Bed
[2018-08-06] MEDS ORDERED: fentaNYL Citrate Inj 100 MCG/2 ML Ampul ONE (16:47)
--- NOTE | 2018-08-06 17:03 | XR ---
EXAM DATE: 08/06/2018 12:00 AM EDT AGE/SEX: 72 years / Male INDICATIONS: Post pacemaker, pneumothorax. CLINICAL DATA: This is the patient's initial encounter. Patient reports that signs and symptoms have been present for 1 day and indicates a pain score of Nonresponsive. MEDICAL/SURGICAL HISTORY: Non-responsive. Non-responsive. COMPAR[place]: [facility] [place] 1[place] SING[place] AP, [place]/04/2018. . FINDINGS: A single AP view of the chest demonstrates interval placement of a dual-lead pacing device on the lef t. Leads terminate in the region of the right atrium and right ventricle respectively. No pneumothora x. Heart is enlarged. Pulmonary vascular engorgement noted. No infiltrate, effusion, or pneumothorax. CONCLUSION: Left-sided pacer in good position without pneumothorax. Cardiomegaly with pulmonary vascular engorgem ent. Electronically signed by: Petey Arana MD 08/06/2018 5:02 PM EDT
--- NOTE | 2018-08-06 17:30 | MR ---
cc: Mario Millan MD DATE: 08/06/2018 INDICATIONS: Ventricular tachycardia arrest, sustained monomorphic ventricular tachycardia inducible at electrophysiology study, ischemic cardiomyopathy, congestive heart failure, class III. The patient has been maximum dose of guideline-directed medical therapy for over 3 months, ejection fraction 30%, date of study 08/05/2018. The device was placed for secondary prevention, atrial lead implanted for SVT discrimination. PROCEDURE PERFORMED: 1. Placement of Medtronic dual-chamber defibrillator. 2. Testing of Medtronic dual-chamber defibrillator system. ACCESS SITE: Left subclavian vein. EQUIPMENT USED: Generator Medtronic model EVERA XTDR SureScan, dual-chamber MRI-compatible defibrillator, serial number [id number]. Right atrial lead: Medtronic model 5076, 45 cm screw in atrial lead, serial # [id number]. Right ventricular lead: Medtronic model 6947M, 62 cm screw in ventricular lead, serial number [id number]. LEAD TESTING: Right atrial lead: P-wave 3.9 millivolts, lead impedance 732 ohms and stable. Pacing threshold 1.1 volts at 0.5 milliseconds. Pacing at 10 volts, no diaphragmatic stimulation. Right ventricular lead: R-wave 5.4 millivolts, lead impedance 885 ohms, pacing threshold 1.2 volts at 0.5 milliseconds. Pacing at 10 volts, no diaphragmatic stimulation. Ventricular fibrillation was induced on one occasion and terminated with a single 20 joule shock with an impedance of 44 ohms. PARAMETERS: Mode: AAIR - DDDR, lower rate 60, upper rate 130. VT 182 beats per minute, VF 222 beats per minute, Prepare settings. DIAGNOSIS: 1. Successful placement of Medtronic dual-chamber defibrillator. 2. Successful testing of Medtronic dual-chamber defibrillator system. 2. Defibrillation threshold of 20 joules or less. DISPOSITION: The patient will be monitored on telemetry post-procedure. We will continue his current program. He will be discharged home if stable tomorrow. I will see him back for a wound check and chronic device reprogramming in our office within 2 weeks. Mario Millan MD OQ/sb/sera , 04:01 PM , 04:10 PM JIMMY
[2018-08-06] MEDS: ceFAZolin 2 GM Premix Inj 2 GM/50 ML PIGGYBACK IV.SIG SCH (21:14)
[2018-08-07] MEDS ORDERED: Vancomycin Inj 2,000 MG in Sodium Chlor 0.9% Inj 500 ML IV.SIG SCH (01:00)
[2018-08-07] MEDS: Insulin NovoLOG Aspart Correctional Sugar Inj SQ SCH ×2 (03:09→08:27)
[2018-08-07] MEDS: Chlorhexidine Gluconate 2% 1 Pack (2 Cloths) TOPICAL SCH (05:51)
[2018-08-07 05:55] LABS: Mean Corpuscular HGB Conc 33.3 % (32.0-36.0); Mean Corpuscular Hemoglobin 29.6 pg (27.0-34.0); Mean Corpuscular Volume 88.8 fL (80.0-100.0); Platelet Count 193 th/mm3 (150-450); Red Blood Count 4.39 mil/mm3 (4.50-5.90); Red Cell Distribution Width 14.6 % (11.6-17.2); White Blood Count 9.5 th/mm3 (4.0-11.0)
[2018-08-07] MEDS: ceFAZolin 2 GM Premix Inj 2 GM/50 ML PIGGYBACK IV.SIG SCH (06:08)
[2018-08-07 08:13] VITALS: O2SAT 96
[2018-08-07 08:14] VITALS: BP 160/86; RESP 17; TEMP 98.5
[2018-08-07] MEDS: Carvedilol 6.25 MG Tablet PO SCH (08:26)
[2018-08-07] MEDS: Allopurinol 100 MG Tablet PO SCH (08:26)
[2018-08-07] MEDS: Pantoprazole Sodium 20 MG DR Tablet PO SCH (08:26)
--- NOTE | 2018-08-07 09:18 | P.DS ---
Date of admission: 08/04/18 20:52 Primary care physician: Guru Sumner MD Brief History from admission: 72-year-old male with a past medical history significant for CAD status post MA in 2006, hypertension, hyperlipidemia and diabetes mellitus presents to the emergency department for the evaluation of chest pain. The patient reports he was watching TV when he had sudden onset chest pain. He reports he felt hot, dizzy and became diaphoretic. He denies any shortness of breath or loss of consciousness. He states his chest pain is now resolved. On arrival to the scene, EMS the patient to have a wide-complex tachycardia and be hypotensive. The patient was defibrillated to and converted to sinus tachycardia with frequent PVCs. He denies any associated shortness of breath. No fevers/ chills. No abdominal pain. No nausea/vomiting/diarrhea. No lateralizing signs /symptoms. Patient update on day of discharge: Patient reports he is feeling great. No new issues. DS: Medications - Discharge Medications Prescriptions: carvedilol 6.25 mg PO BID 90 Days #180 tab DS: Summary Hospital Course: 72 years old male presented with chest pain, diaphoresis on 08/05 with shortness of breath called EVAC was noted to be in WCT and cardioverted on the field. Treatment course detailed below: NSTEMI - Chest pain/wide with complex tachycardia - Ischemic Cardiomyopathy- low EF S/P cath 08/05- patent stents. 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 History of hypertension Hyperlipidemia - Dr. Millan, cardiology followed the patient and an AICD was placed. - Continue aspirin and Plavix, Coreg, Cozaar, Atorvastatin Diabetes mellitus, type 2 insulin requiring -Follows with data center operator Dr. Null as OP, per patient last A1C is 8- - Continue outpatient medications on discharge. History of hyperuricemia- on allopurinol as OP - Time Spent with Patient Total time spent providing and/or coordinating discharge services: Less than 30 minutes - Quality: VTE Deep Vein Thrombosis/Pulmonary Embolism Present on Admission: No Exam Vital signs: Vital Signs 08/06/18 10:00 08/06/18 11:00 08/06/18 11:28 Temperature 98.0 F Pulse Rate 82 82 84 Respiratory Rate 14 Blood Pressure 137/95 H Pulse Oximetry 96 08/06/18 11:34 08/06/18 12:00 08/06/18 16:45 Temperature 97.4 F L Pulse Rate 85 75 82 Respiratory Rate 20 Blood Pressure 146/92 H Pulse Oximetry 98 08/06/18 17:00 08/06/18 17:28 08/06/18 17:29 Temperature 97.6 F 98.2 F Pulse Rate 84 86 Respiratory Rate 21 18 Blood Pressure 164/99 H 158/100 H Pulse Oximetry 98 98 96 08/06/18 18:00 08/06/18 18:36 08/06/18 19:00 Temperature Pulse Rate 88 98 H Respiratory Rate Blood Pressure 157/98 H Pulse Oximetry 08/06/18 20:00 08/06/18 21:00 08/06/18 22:00 Temperature Pulse Rate 98 H 100 H 96 H Respiratory Rate 16 Blood Pressure 136/80 Pulse Oximetry 94 L 08/06/18 23:00 08/07/18 00:00 08/07/18 01:00 Temperature Pulse Rate 94 H 98 H 96 H Respiratory Rate 16 Blood Pressure Pulse Oximetry 08/07/18 02:00 08/07/18 02:44 08/07/18 03:00 Temperature Pulse Rate 102 H 146 H 98 H Respiratory Rate 20 Blood Pressure 145/104 H Pulse Oximetry 93 L 08/07/18 03:41 08/07/18 04:00 08/07/18 04:41 Temperature Pulse Rate 96 H 88 88 Respiratory Rate 16 18 18 Blood Pressure 140/84 165/88 H 165/88 H Pulse Oximetry 94 L 94 L 94 L 08/07/18 05:00 08/07/18 05:41 08/07/18 06:00 Temperature Pulse Rate 92 H 92 H 64 Respiratory Rate 16 Blood Pressure 164/92 H Pulse Oximetry 93 L 08/07/18 07:00 08/07/18 08:13 08/07/18 08:41 Temperature 98.5 F Pulse Rate 102 H 95 H Respiratory Rate 17 Blood Pressure 160/86 H Pulse Oximetry 96 96 Intake & Output 08/06/18 08/07/18 08/07/18 18:59 06:59 18:59 Intake Total 450 / 450 1100 / 1100 Output Total 675 / 675 Balance 450 / 450 425 / 425 Weight 130 kg Intake: IV 250 / 250 620 / 620 Heparin/D5W 25,000 U/250 mL 25, 250 / 250 000 unit In 250 ml @ 1,000 UNITS/HR 10 mls/hr IV.CONT TITRATE PRN Rx#:[id number] Vancomycin Inj 2,000 MG In NS 520 / 520 Inj 500 ML @ 250 mls/hr IV.SIG Q12H [facility] Rx#:[id number] Ancef 2 GM Premix Inj 2 gm In 100 / 100 50 ml @ 100 mls/hr IV.SIG Q8H YESI Rx#:[id number] Oral 200 / 200 480 / 480 Output: Urine 675 / 675 Other: # Voids 2 # Incontinent Voids 1 Date of Last Bowel Movement 08/06/18 08/06/18 08/06/18 # Bowel Movements 1 Narrative: GENERAL: This is a well-nourished, well-developed patient, in no apparent distress. CARDIOVASCULAR: Normal rate and regular rhythm without murmurs, gallops, or rubs. RESPIRATORY: Good respiratory efforts. Breath sounds equal and clear to auscultation bilaterally. GASTROINTESTINAL: Abdomen soft, non-tender, non-distended. Normal active bowel sounds MUSCULOSKELETAL: Extremities without cyanosis, or edema. NEURO: Alert & Oriented x4 to person, place, time, situation. Moves all ext x4 PSYCH: Appropriate mood and affect. Results Procedures completed during hospitalization: 08/01- cardiac cath- 1. Moderate coronary artery disease with patent stents in the left anterior descending artery and right coronary artery. 2. Ischemic cardiomyopathy with moderate to severe left ventricular systolic dysfunction. EF 30% Labs on day of discharge: Labs from last 24 hours 08/07/18 08/07/18 08/07/18 07:03 05:44 01:27 WBC 9.5 RBC 4.39 L Hgb 13.0 Hct 39.0 MCV 88.8 MCH 29.6 MCHC 33.3 RDW 14.6 Plt Count 193 MPV 8.0 POC Glucose 188 H 211 H 08/06/18 08/06/18 08/06/18 20:29 16:42 11:20 WBC RBC Hgb Hct MCV MCH MCHC RDW Plt Count MPV POC Glucose 245 H 142 H 209 H - Impressions ITS Impressions Chest X-Ray 08/06/18 00:00 CONCLUSION: Left-sided pacer in good position without pneumothorax. Cardiomegaly with pulmonary vascular engorgement. Discharge Plan - Discharge Disposition Patient Disposition: Discharge Home - Discharge Condition Condition: Good - Discharge Order Discharge Orders: Discharge Order (Routine); Ordered 08/07/18 Ordered By: Rodney Otero Cardiology Clear for Discharge (Routine); Ordered 08/07/18 Ordered By: Nikki Block - Physicians Team Primary Care Provider: Guru Sumner Attending Provider: Rodney Otero Other Providers: Mario Millan MD
[2018-08-07 09:35] VITALS: PULSE 110
== END 2018-08-07 10:02 | disposition home or self-care (01) ==
LOC: NEPE 18:58 → INTOOBSV 20:52 → NEDA 20:52 → HIMC 21:30 → HCIS 08-05 14:03
PROVIDERS: ADMIT Family Medicine; ATTEND Family Medicine